=== PATIENT | female | born 1955 | race Caucasian/White ===

== ENCOUNTER → 2017-12-25 09:29 | Outpatient (CLI) | payer OTHER, SELFPAY ==
[2017-12-25 09:49] LABS: Add Manual Diff / Slide Review NO; Basophils Percent Auto 0.5 % (0-2); Eosinophils Percent Auto 3.9 % (2-4); Hemoglobin 17.5 g/dL (12.0-16.0); Mean Corpuscular HGB Conc 33.6 % (30-36); Mean Corpuscular Hemoglobin 29.8 PG (26-34); Mean Corpuscular Volume 88.8 fL (80-100); Neutrophils Absolute Auto 5000 /uL (3000-5900); Neutrophils Percent Auto 66.6 % (50-75); Platelet Count 272 X10^3/uL (150-400); Red Blood Cell Count 5.86 X10^6/uL (4.0-5.2); Red Cell Distribution Width 13.9 % (11.6-14.8); White Blood Cell Count 7.5 X10^3/uL (4.5-11.0)
[2017-12-25 10:03] LABS: Alanine Aminotransferase 58 IU/L (9-52); Albumin 4.3 g/dL (3.5-5.0); Albumin Globulin Ratio 1.2 (1.0-2.8); Alkaline Phosphatase 120 U/L (38-126); Aspartate Aminotransferase 41 IU/L (14-36); BUN Creatinine Ratio 23.8 (6-22); Bilirubin Total 0.8 mg/dL (0.2-1.3); Blood Urea Nitrogen 19 mg/dL (7-17); Calcium 9.5 mg/dL (8.4-10.2); Carbon Dioxide 26 mmol/L (22-32); Chloride 108 mmol/L (98-107); Estimated Glomerular Filt Rate > 60.0 mL/min (>60); Globulin 3.6 g/dL (1.7-4.1); Glucose 108 mg/dL (80-110); HEMOLYSIS < 15 (0-50); Potassium 4.4 mmol/L (3.4-5.1); Sodium 143 mmol/L (137-145); Total Protein 7.9 g/dL (6.3-8.2)
[2017-12-25 10:38] LABS: Ferritin 15.9 ng/mL (11.1-264); HEMOLYSIS < 15 (0-50); Iron 93 ug/dL (37-170)
[2017-12-25 10:50] LABS: Percent Iron Saturation 25 % (15-50); Total Iron Binding Capacity 377 ug/dL (265-497); Transferrin 300 mg/dL (206-381)
== END ==
PROVIDERS: Family Provider Physician Assistant; PCP Physician Assistant; Visit Provider Internal Medicine Hematology & Oncology
DX: D64.9 Anemia, unspecified (principal)
CPT/HCPCS: 36415; 80053; 82728; 83540; 83550; 85025

== ENCOUNTER 2018-01-06 23:56 | Emergency (ER) | payer OTHER, SELFPAY ==
[2018-01-07 00:09] VITALS: BP 136/101; PULSE 97; RESP 28; TEMP 36.4; O2SAT 97; BMI 48.4
--- NOTE | 2018-01-07 00:24 | DI.RAD.S_ITS ---
PROCEDURE: XR FOOT RT MIN 3V INDICATIONS: fall, lateral pain TECHNIQUE: 3 views of the foot were acquired. COMPARISON: [facility], , FOOT 3V RIGHT, 09/21/2010, 17:59. FINDINGS: Bones: No acute fractures or dislocations. No suspicious bony lesions. There is heterogeneity within the posterior calcaneal marrow space, previously present in 2010, and a small moderate fashion insertion spur at the posterior calcaneus. Soft tissues: No tibiotalar joint effusion. Achilles tendon appears normal. IMPRESSION: No trauma found. Plantar fascia insertion spur, normal variant heterogeneity within the posterior marrow space of the calcaneus diffusely present also in 2010. Source of lateral pain after trauma is not identified. Dictated by: Milind Hernandez M.D. on 01/07/2018 at 8:25 Approved by: Milind Hernandez M.D. on 01/07/2018 at 8:27
--- NOTE | 2018-01-07 00:24 | DI.RAD.S_ITS ---
PROCEDURE: XR ANKLE RT MIN 3V INDICATIONS: fall , pain TECHNIQUE: 3 views of the ankle were acquired. COMPARISON: [facility], CR, XR FOOT RT MIN 3V, 01/07/2018, 0:25. [facility], CR, ANKLE 3 VIEWS RIGHT, 12/06/2013, 20:02. FINDINGS: Bones: No fractures or dislocations. Ankle mortise is normally aligned. No suspicious bony lesions. Soft tissues: No tibiotalar joint effusion. Achilles tendon appears normal. IMPRESSION: No trauma found. 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 A source of persistent lateral pain after trauma is not found. Dictated by: Milind Hernandez M.D. on 01/07/2018 at 8:27 Approved by: Milind Hernandez M.D. on 01/07/2018 at 8:29
--- NOTE | 2018-01-07 01:00 | ED_ITS ---
HPI - Extremity Injury (Lower) General Chief Complaint: Extremity Injury, Lower Stated Complaint: TWISTED LEFT FOOT, PAIN CAN'T WALK Time Seen by Provider: 01/07/18 00:15 Source: patient Mode of arrival: wheelchair Limitations: no limitations History of Present Illness HPI Narrative: Patient is a 62-year-old female who presents with on right foot and ankle pain. She tripped and felt like her toes been all backwards. She has pain on her lateral ankle as well. She previously injured that foot and ankle number of years ago and required a walking boot. She denies numbness or tingling. She has no knee pain or hip pain no other injuries. Related Data Home Medications Medication Instructions Recorded Confirmed buspirone 5 mg PO BID 09/26/17 09/26/17 Allergies Allergy/AdvReac Type Severity Reaction Status Date / Time codeine [CODEINE] Allergy Unknown HIVES Verified 01/07/18 00:09 Review of Systems Review of Systems GENERAL: Denies chills,fever HEENT: Denies throat pain RESPIRATORY: Denies dyspnea, cough, wheezing CARDIOVASCULAR: Denies chest pain, palpitations GASTROINTESTINAL: Denies nausea, vomiting MUSCULOSKELETAL: See HPI SKIN: No rash, no laceration, no pruritus NEUROLOGIC: Denies weakness, dizziness, headache, numbness 8 point review of systems is negative except for those stated above and HPI PFSH Medical History Iron deficiency anemia following bariatric surgery (Acute) Surgical History History of gastric bypass Social History Smoking Status: Never smoker Exam Initial Vital Signs Initial Vital Signs: Vital Signs Temperature 97.6 F 01/07/18 00:09 Pulse Rate 97 H 01/07/18 00:09 Respiratory Rate 28 H 01/07/18 00:09 Blood Pressure 136/101 H 01/07/18 00:09 Pulse Oximetry 97 01/07/18 00:09 Const General: cooperative Nutritional Appearance: overweight Orientation: alert, awake and oriented x3 HENMT Head: normal to inspection and normocephalic Eyes Pupils: PERRL EOM: EOM intact bilaterally Chest Chest: normal inspection of the chest Resp Effort & Inspection: normal respiratory effort Cardio Rate: regular rate Rhythm: regular rhythm Heart Sounds: S1 normal and S2 normal GI Inspection: normal to inspection Palpation: soft and No tender Skin General: no rashes or lesions noted Neuro General: alert, awake and oriented x3 Cranial Nerves: CN's II-XI intact bilaterally Extrem Right lower extremity: ankle Details: tenderness Location: of the lateral malleolus and warmth; no edema and foot Details: tenderness Location: of the dorsal foot Location: distally and of the lateral foot Location: in the mid- section Course Orders Ordered: ED Orders 01/07/18 00:24 XR ankle RT min 3V Stat XR foot RT min 3V Stat Vital Signs - 8 hr 01/07/18 00:09 01/07/18 01:20 Temperature 97.6 F 98.1 F Pulse Rate 97 H 95 H Respiratory Rate 28 H 22 Blood Pressure 136/101 H 136/90 H Pulse Oximetry 97 98 MDM - Extremity Injury (Lower) Imaging Data Right ankle x-ray: Attestation: I personally reviewed and interpreted this imaging study as follows: My impression: No acute fracture, arthritis Right foot x-ray:: Attestation: I personally reviewed and interpreted this imaging study as follows: My impression: Arthritis, no acute fracture Discharge Plan Departure Patient Disposition: Home, Self-Care Clinical Impression: Ankle sprain, Right foot sprain Discharge Date/Time: 01/07/18 01:20 Interventions: ED Discharge Assessment Last Done: 01/07/18 01:20 Instructions: Ankle Sprain, DI for Foot Sprain Activity Restrictions/Additional Instructions: *You have been diagnosed with right ankle and foot sprain *What to do: No broken bones, use walking boot as needed increased weight- bearing as tolerated *Continue to take medications as directed Tylenol take as directed if needed for pain *Follow up with your primary care provider in 2-3 days *Return to ER if you should have increasing pain, numbness, tingling, weakness or any new, worsening or concerning symptoms Prescriptions: No Action buspirone 5 mg Tablet 5 mg PO BID RF: 0 Referrals: Colleen Puri PA-C [Primary Care Provider] -
[2018-01-07 01:20] VITALS: BP 136/90; PULSE 95; RESP 22; TEMP 36.7; O2SAT 98
== END 2018-01-07 01:20 | disposition home or self-care (01) ==
PROVIDERS: Emergency Provider Emergency Medicine; Family Provider Physician Assistant; PCP Physician Assistant
DX: S93.401A Sprain of unspecified ligament of right ankle, initial encounter (principal); W01.0XXA Fall on same level from slipping, tripping and stumbling without subsequent striking against object, initial encounter
CPT/HCPCS: 73610; 73630; 99282; 99283

== ENCOUNTER → 2018-02-25 16:18 | Outpatient (CLI) | payer OTHER, SELFPAY ==
--- NOTE | 2018-02-25 16:23 | DI.RAD.S_ITS ---
PROCEDURE: XR TOE RT MIN 2V INDICATIONS: RIGHT FOOT 4TH DIGIT,INJURY WEEKS AGO, PERSISTANT PAIN TECHNIQUE: 3 views of the fourth toe(s) acquired. COMPARISON: None. FINDINGS: Bones: No fractures or dislocations. No suspicious bony lesions. Soft tissues: No suspicious soft tissue densities. IMPRESSION: Osseous trauma is not found. No malalignment is present. Dictated by: Milind Hernandez M.D. on 02/25/2018 at 17:12 Approved by: Milind Hernandez M.D. on 02/25/2018 at 17:13
== END ==
PROVIDERS: Family Provider Physician Assistant; PCP Physician Assistant; Visit Provider Family Medicine
DX: M79.674 Pain in right toe(s) (principal)
CPT/HCPCS: 73660

== ENCOUNTER → 2018-03-03 14:52 | Outpatient (CLI) | payer OTHER, SELFPAY ==
[2018-03-03 15:06] LABS: Add Manual Diff / Slide Review NO; Basophils Percent Auto 0.6 % (0-2); Eosinophils Percent Auto 4.7 % (2-4); Hematocrit 48.9 % (36-46); Hemoglobin 16.2 g/dL (12.0-16.0); Lymphocytes Percent Auto 18.3 % (25-40); Mean Corpuscular HGB Conc 33.2 % (30-36); Mean Corpuscular Hemoglobin 29.3 PG (26-34); Mean Corpuscular Volume 88.3 fL (80-100); Monocytes Percent Auto 7.4 % (3-14); Neutrophils Absolute Auto 5400 /uL (3000-5900); Platelet Count 252 X10^3/uL (150-400); Red Blood Cell Count 5.53 X10^6/uL (4.0-5.2); Red Cell Distribution Width 14.1 % (11.6-14.8); White Blood Cell Count 7.9 X10^3/uL (4.5-11.0)
[2018-03-03 19:14] LABS: Alanine Aminotransferase 41 IU/L (9-52); Albumin 3.8 g/dL (3.5-5.0); Albumin Globulin Ratio 1.1 (1.0-2.8); Alkaline Phosphatase 106 U/L (38-126); Aspartate Aminotransferase 32 IU/L (14-36); BUN Creatinine Ratio 22.5 (6-22); Bilirubin Total 0.6 mg/dL (0.2-1.3); Blood Urea Nitrogen 18 mg/dL (7-17); Calcium 8.7 mg/dL (8.4-10.2); Carbon Dioxide 23 mmol/L (22-32); Chloride 114 mmol/L (98-107); Estimated Glomerular Filt Rate > 60.0 mL/min (>60); Globulin 3.4 g/dL (1.7-4.1); Glucose 89 mg/dL (80-110); HEMOLYSIS 16 (0-50); Lactate Dehydrogenase 486 U/L (313-618); Potassium 4.3 mmol/L (3.4-5.1); Sodium 146 mmol/L (137-145); Total Protein 7.2 g/dL (6.3-8.2)
[2018-03-03 19:18] LABS: HEMOLYSIS < 15 (0-50); Iron 80 ug/dL (37-170)
[2018-03-03 19:33] LABS: Percent Iron Saturation 24 % (15-50); Total Iron Binding Capacity 339 ug/dL (265-497); Transferrin 280 mg/dL (206-381)
[2018-03-03 20:10] LABS: Ferritin 15.6 ng/mL (11.1-264)
== END ==
PROVIDERS: Family Provider Physician Assistant; PCP Physician Assistant; Visit Provider Nurse Practitioner Gerontology
DX: D50.9 Iron deficiency anemia, unspecified (principal)
CPT/HCPCS: 36415; 80053; 82728; 83540; 83550; 83615; 85025

== ENCOUNTER → 2018-08-05 16:04 | Outpatient (CLI) | payer OTHER, SELFPAY | PROVIDERS: Family Provider Physician Assistant; PCP Physician Assistant; Visit Provider Internal Medicine Hematology & Oncology | DX: D50.9 Iron deficiency anemia, unspecified (principal); D75.1 Secondary polycythemia | CPT/HCPCS: 36415; 80053; 82728; 83540; 83550; 85025 ==

== ENCOUNTER → 2018-08-20 08:26 | Outpatient (CLI) | payer OTHER, SELFPAY ==
--- NOTE | 2018-08-20 08:28 | DI.US.S_ITS ---
PROCEDURE: US ABDOMEN LIMITED INDICATIONS: IRON DEFICIENCY; POLYCYTHEMIA TECHNIQUE: Real-time focused scanning was performed of the abdomen, with image documentation. COMPARISON: None. FINDINGS: Spleen measures 11.3 cm long with an estimated volume of 144 cubic centimeter. Splenic vein is patent. IMPRESSION: Spleen measures 11.3 cm long with an estimated volume of 144 cubic centimeter. Dictated by: Eduardo Kidd M.D. on 08/20/2018 at 10:54 Approved by: Eduardo Kidd M.D. on 08/20/2018 at 10:55
[2018-08-20 09:59] LABS: Hematocrit 47.9 % (36-46); Hemoglobin 16.2 g/dL (12.0-16.0)
== END ==
PROVIDERS: Family Provider Physician Assistant; PCP Physician Assistant; Visit Provider Nurse Practitioner Gerontology
DX: D50.9 Iron deficiency anemia, unspecified (principal); D75.1 Secondary polycythemia
CPT/HCPCS: 36415; 76705; 85014; 85018

== ENCOUNTER → 2019-07-29 15:00 | Oncology outpatient (ONC) | payer OTHER, SELFPAY ==
--- NOTE | 2017-09-26 10:37 | ONC.PN ---
Assessment and Plan - Time Spent with Patient Impression: 1. Iron deficiency anemia. 2. B12 deficiency. 3. History of gastric bypass in 2002. 4. History of panic attacks. She is feeling well and appears stable clinically at today's visit. Lab work reviewed with her. Ferritin at the low end of normal range however counts are stable and she is not anemic at the present time. No indication for IV iron today. She is taking an oral iron supplement though uncertain the dose or type. Recommend that she continue taking it and follow up here in 3-4 months with labs repeated prior to the visit. I encouraged her to call back sooner if interval concerns or new symptoms arise. Plan: 1. Continue oral iron supplement. Take with vitamin C on empty stomach for best absorption. 2. Return to clinic in 3-4 months. 3. CBC, CMP, iron, TIBC and ferritin prior to the visit. 4. Follow-up with Colleen Puri for other health issues or concerns. Dictated by Neil Case MD Medical Oncology and Hematology cc: Colleen Puri PA-C PN -Subjective Interval history: Identification: Ms. Duvall is a 62-year-old woman with history of iron deficiency anemia. Last seen here in clinic on 07/04/[address] Leigh. Interval history: Her past history is notable for gastric bypass surgery in 2002 at which time she reportedly weighed over 400 lb. She was able to lose 130 lb according to last note. Previously noted to be deficient in B12 and iron. She tried oral iron but did not tolerated. She received treatment with 5 doses of iron sucrose 200 mg in June 2016. Two more doses were subsequently given. Last seen here in clinic in June. She returns in follow-up today. Past medical history Gastric bypass Dr. Moose Doyle 2002 Iron deficiency B12 deficiency History of panic attacks - Additional ROS Additional ROS: Review of systems: General: No weight loss, fever or night sweats. Skin: No rash or bruising. HEENT: No headaches, epistaxis or dysphagia. Respiratory: No cough or dyspnea. Cardiac: No chest pain, PND or orthopnea. GI: No nausea, abdominal pain, bloating or early satiety. No hematochezia or hematemesis. :. Stable. Musculoskel etal: No new bone pain Neurologic: Negative. Results - Labs Laboratory results from September 22, 2017: WBC 7800, hemoglobin 16.7, hematocrit 49.7, MCV 88.4, platelet count 542052. Sodium 142, potassium 4.4, BUN 14, creatinine 0.8, glucose 94, calcium 8.8, iron 67, TIBC 351, saturation 19%, ferritin 15.3. Total bili 0.6, alk-phos 123, AST 32, ALT 49. Globulin 3.4. B12 344 Home Medications and Allergies Home Medications Medication Instructions Recorded Confirmed Type buspirone 5 mg PO BID 09/26/17 09/26/17 History Allergies Allergy/AdvReac Type Severity Reaction Status Date / Time codeine [CODEINE] Allergy Unknown HIVES Unverified 09/03/17 12:00 Exam Narrative: Physical exam: Skin: No evident rash, petechiae or ecchymoses. General: Alert, comfortable and well nourished. Not in apparent distress. HEENT: Sclerae anicteric, GENE, EOMI. Oropharynx clear. Mucosal membranes moist. No glossitis. Lymph: No palpable cervical or supraclavicular adenopathy. Lungs: Clear bilaterally without wheezes or rales. Cor: Regular rate and rhythm, no S3 or murmur. Abdomen: Obese, soft, nontender. Active bowel sounds. No palpable mass or evident hepatosplenomegaly. Extremities: No significant edema. Neurologic: Mood and affect appropriate. Speech is fluent and coherent. Gait steady and without apparent ataxia.
[2017-09-26 11:01] VITALS: BP 166/103; PULSE 83; RESP 15; TEMP 36.9; O2SAT 98
--- NOTE | 2018-01-06 08:13 | ONC.APRN.PN ---
Assessment and Plan (1) Iron deficiency anemia following bariatric surgery Current visit: No Status: Acute 01/06/18 08:14 62-year-old female who is seen in this clinic for a diagnosis of iron deficiency anemia, in patient with history of gastric bypass. In the past she has required iron sucrose infusions most recent infusions June of 2016. She continues on oral iron supplement TID. Recent lab work December 25, 2017 demonstrates very normal iron studies with total iron of 93 saturation 25%. Interestingly, patient does have elevated hemoglobin and hematocrit. Hemoglobin 17.5 hematocrit 52.0. In review of the last few years hemoglobin and hematocrit have been persistently elevated since January of 2017. Prior to that intermittently elevated. Dr Leigh at one point investigated further studies specifically the patient was Lc 2 negative. Patient does have risk factors for polycythemia vera she is morbidly obese. I suspect she does have some sleep apnea however patient denies. Additionally, patient has had hypertensive readings in the past. Blood pressure was normal at intake today. No signs or symptoms of thrombotic event. I have asked the patient to discontinue her iron supplement. I will have her return in 4 weeks to visit with 1 of our new oncologist. Prior to her next appointment we will check CBC CMP LDH along with iron profile, ferritin. I will also order abdominal ultrasound to get a better look at her spleen. She is quite difficult to examine noting her habitus. Patient does not have any history of therapeutic phlebotomy. 01/06/18 16:25 01/06/18 16:29 - Time Spent with Patient 30 mins PN -Subjective Interval history: Identification: Ms. Duvall is a 62-year-old woman with history of iron deficiency anemia. Was previously under the care of Dr Leigh, was evaluated by Dr Case 09/26/2017. Interval history: Her past history is notable for gastric bypass surgery in 2002 at which time she reportedly weighed over 400 lb. She was able to lose 130 lb according to last note. Previously noted to be deficient in B12 and iron. She tried oral iron but did not tolerated. She received treatment with 5 doses of iron sucrose 200 mg in June 2016. Two more doses were subsequently given. Last seen here in clinic in September, she has not required iron infusions since June of 2016. On exam today patient continues to complain of chronic dizziness. Primary care is managing, patient reports she sees primary care soon and they are ?working on it?. Otherwise feeling pretty well. Activity tolerance is quite good. No change in appetite, no early satiety. No change with bowel or bladder habits. No abdominal bloating. No vision changes. No headaches. Past medical history Gastric bypass Dr. Moose Doyle 2002 Iron deficiency B12 deficiency History of panic attacks Home Medications and Allergies Home Medications Medication Instructions Recorded Confirmed Type buspirone 5 mg PO BID 09/26/17 09/26/17 History Allergies Allergy/AdvReac Type Severity Reaction Status Date / Time codeine [CODEINE] Allergy Unknown HIVES Unverified 09/03/17 12:00 Exam Vital signs: Last Vital Signs Temp 98.4 F 09/26/17 11:01 Pulse 83 09/26/17 11:01 Resp 15 09/26/17 11:01 BP 166/103 H 09/26/17 11:01 Pulse Ox 98 09/26/17 11:01 - Constitutional positive morbidly obese - Routine HEENT Exam Head: Absent: scalp tenderness, tenderness of temporal artery Eye: Present: conjunctivae pink. Absent: conjunctival icterus, scleral injection ENT: Present: mucous membranes moist, oropharynx clear Comments: poor oral care - Routine Neck Exam Present: supple. Absent: lymphadenopathy - Routine Respiratory Exam Present: Clear to auscultation bilaterally. Absent: rales, rhonchi, wheezes - Routine Cardiovascular Exam Present: RRR, S1, S2. Absent: murmur, gallop, rubs, JVD - Routine Abdominal Exam Present: soft, normoactive bowel sounds. Absent: tenderness, distended, organomegaly, mass Comments: morbidly obese abdomen, very difficult to examine liver, spleen - Routine Extremities Exam Absent: edema, calf tenderness - Routine Skin Exam Present: intact, normal turgor. Absent: petechiae, rash - Routine Neurological Exam Present: alert, oriented X3 - Routine Psychiatric Exam Present: normal affect
[2018-01-06 15:49] VITALS: BP 126/84; PULSE 74; RESP 18; TEMP 37; O2SAT 97
[2018-03-09 13:17] VITALS: BP 152/97; PULSE 89; RESP 19; TEMP 37.3; O2SAT 99
--- NOTE | 2018-03-09 13:19 | ONC.PN ---
PN -Subjective Interval history: Chief complaint 63-year-old female with history of iron deficiency anemia. History of present illness Ms. Duvall is a 63-year-old woman with history of iron deficiency anemia. She was previously under the care of Dr Leigh, and Dr Case. Due to severe obesity (> 400 lb), she underwent gastric bypass surgery in 2002. She was able to lose 130 lb according to the note. She was found to be iron deficient with ferritin as low as 3.5 on 06/27/2016. She tried oral iron but did not tolerated. She received treatment with 5 doses of iron sucrose 200 mg in June 2016. Two more doses were subsequently given. Her ferritin level went up to 34.2 on 08/02/2016. Her H/H have been normalized since 08/02/2016, and remarkably have been mildly polycythemic with most recent H/H 16.2/48.9 on 03/03/2018. She has not required any iron infusions since June of 2016. She has also stopped oral iron completely. Today, she said she starts feeling great. She does not have any new complaints. She is not taking any medications except buspirone for depression. She denies any sleep apnea either. Past medical history Gastric bypass Dr. Moose Doyle 2002 Iron deficiency B12 deficiency History of panic attacks - Additional ROS All systems PM: reviewed and no additional remarkable complaints except as stated Home Medications and Allergies Home Medications Medication Instructions Recorded Confirmed Type buspirone 5 mg PO BID 09/26/17 03/09/18 History Allergies Allergy/AdvReac Type Severity Reaction Status Date / Time codeine [CODEINE] Allergy Unknown HIVES Verified 01/07/18 00:09 Exam Vital signs: Temp 99.1 F 03/09/18 13:17 Pulse 89 03/09/18 13:17 Resp 19 03/09/18 13:17 BP 152/97 H 03/09/18 13:17 Pulse Ox 99 03/09/18 13:17 ECOG 1 Narrative: Constitutional: Well developed, well nourished, not in any acute respiratory distress, obese, pleasant and cooperative. HEENT: Normocephalic atraumatic. Extraocular muscle movement intact. Pupils are round, equal and reactive to light and accommodations. Anicteric sclera. No hearing difficulty; Oral mucus membrane moist and without ulcers. Neck: Supple, symmetrical, and tracheal midline; No palpable thyromegaly and no palpable lymph nodes. Respiratory: No use of accessory muscles. Clear to auscultation, and no wheezes or rales or rubs. Cardiovascular: Regular rate and rhythm, S1 and S2 normal, no murmurs gallops or rubs. No JVD. No pitting edema of lower extremities. Abdomen: Soft, nontender, non-distended, bowel sounds normal, no palpable organomegaly, no hernia, no palpable masses. Lower extremities: No palpable pedal edema. Lymphatic: no palpable lymph nodes in the neck, axillae, or groins. Musculoskeletal: normal gait and station, no clubbing, no cyanosis, no pitting edema. Skin: no rashes, no ulcers, no petechiae Neurological: Awake and alert and oriented x3. CN II-XII grossly intact. No focal motor or sensory deficit. Psychiatric: Good judgment, good insight, normal affect, normal thought process, cooperative, no depression, no anxiety. Results - Labs Labs from March 03, 2018: WBC 7.9, hemoglobin 16.2, hematocrit 48.9, MCV 88.3, platelets of 252. Assessment and Plan (1) Iron deficiency anemia following bariatric surgery She was iron deficient with significantly low level of ferritin in June of 2016. After intravenous iron supplementation, patient has become not anemic anymore. On the contrary she has become slightly polycythemic. Patient said that she is not taking any oral iron at this moment. It is somewhat unusual to see over showed of hemoglobin/hematocrit after iron infusion. I talked with the patient that since clinically she does not have any signs or symptoms, I will continue current active surveillance. If the H and H continue to increase progressively, I will proceed with workup for polycythemia. (2) Obesity Status post gastric bypass surgery. Weight has been stable after a decrease of about 130 lb. We will continue monitor. - Time Spent with Patient Plan in summary: 1. RTC MD in one month 2. Repeat CBC, CMP, LDH, Fe panel, and ferritin with next visit
[2018-03-30 15:25] LABS: Alanine Aminotransferase 56 IU/L (9-52); Albumin 4.1 g/dL (3.5-5.0); Albumin Globulin Ratio 1.3 (1.0-2.8); Alkaline Phosphatase 120 U/L (38-126); Aspartate Aminotransferase 37 IU/L (14-36); Bilirubin Total 0.5 mg/dL (0.2-1.3); Blood Urea Nitrogen 14 mg/dL (7-17); Calcium 8.8 mg/dL (8.4-10.2); Carbon Dioxide 25 mmol/L (22-32); Chloride 110 mmol/L (98-107); Estimated Glomerular Filt Rate > 60.0 mL/min (>60); Globulin 3.1 g/dL (1.7-4.1); Glucose 96 mg/dL (80-110); HEMOLYSIS < 15 (0-50); Lactate Dehydrogenase 469 U/L (313-618); Potassium 4.2 mmol/L (3.4-5.1); Sodium 147 mmol/L (137-145); Total Protein 7.2 g/dL (6.3-8.2)
[2018-03-30 15:31] LABS: Add Manual Diff / Slide Review NO; Basophils Percent Auto 0.4 % (0-2); Eosinophils Percent Auto 4.5 % (2-4); Hematocrit 49.4 % (36-46); Hemoglobin 16.5 g/dL (12.0-16.0); Lymphocytes Percent Auto 23.2 % (25-40); Mean Corpuscular HGB Conc 33.5 % (30-36); Mean Corpuscular Hemoglobin 29.6 PG (26-34); Mean Corpuscular Volume 88.5 fL (80-100); Monocytes Percent Auto 7.6 % (3-14); Neutrophils Absolute Auto 4200 /uL (3000-5900); Neutrophils Percent Auto 64.3 % (50-75); Platelet Count 259 X10^3/uL (150-400); Red Blood Cell Count 5.58 X10^6/uL (4.0-5.2); Red Cell Distribution Width 13.9 % (11.6-14.8); White Blood Cell Count 6.6 X10^3/uL (4.5-11.0)
[2018-03-30 15:54] LABS: HEMOLYSIS 47 (0-50); Iron 81 ug/dL (37-170)
[2018-03-30 15:57] LABS: Ferritin 13.3 ng/mL (11.1-264)
[2018-03-30 16:05] LABS: Percent Iron Saturation 25 % (15-50); Total Iron Binding Capacity 329 ug/dL (265-497); Transferrin 268 mg/dL (206-381)
[2018-04-06 14:54] VITALS: BP 115/89; PULSE 102; RESP 18; TEMP 36.9; O2SAT 98
--- NOTE | 2018-04-06 15:48 | ONC.PN ---
PN -Subjective Interval history: 63 year old with history of iron deficiency anemia now presented polycythemia. Clinically there is no new signs or symptoms. Patient reported good energy good appetite. He reported no chest pain no shortness of breath. Patient does recall that for the past several months, patient has noted some abdominal node in the upper epigastric region and it comes and goes. History of present illness Ms. Duvall is a 63-year-old woman with history of iron deficiency anemia. She was previously under the care of Dr Leigh, and Dr Case. Due to severe obesity (> 400 lb), she underwent gastric bypass surgery in 2002. She was able to lose 130 lb according to the note. She was found to be iron deficient with ferritin as low as 3.5 on 06/27/2016. She tried oral iron but did not tolerated. She received treatment with 5 doses of iron sucrose 200 mg in June 2016. Two more doses were subsequently given. Her ferritin level went up to 34.2 on 08/02/2016. Her H/H have been normalized since 08/02/2016, and remarkably have been mildly polycythemic with most recent H/H 16.2/48.9 on 03/03/2018. She has not required any iron infusions since June of 2016. She has also stopped oral iron completely. Past medical history Gastric bypass Dr. Moose Doyle 2002 Iron deficiency B12 deficiency History of panic attacks - Patient Self-Reported Symptoms SR Musculoskeletal issues: Back or neck pain Home Medications and Allergies Home Medications Medication Instructions Recorded Confirmed Type buspirone 5 mg PO BID 09/26/17 03/09/18 History Allergies Allergy/AdvReac Type Severity Reaction Status Date / Time codeine [CODEINE] Allergy Unknown HIVES Verified 01/07/18 00:09 Exam Vital signs: Temp 98.5 F 04/06/18 14:54 Pulse 102 H 04/06/18 14:54 Resp 18 04/06/18 14:54 BP 115/89 04/06/18 14:54 Pulse Ox 98 04/06/18 14:54 ECOG 1 Narrative: Constitutional: Well developed, well nourished, not in any acute respiratory distress, obese, pleasant and cooperative. HEENT: Normocephalic atraumatic. Extraocular muscle movement intact. Pupils are round, equal and reactive to light and accommodations. Anicteric sclera. No hearing difficulty; Oral mucus membrane moist and without ulcers. Neck: Supple, symmetrical, and tracheal midline; No palpable thyromegaly and no palpable lymph nodes. Respiratory: No use of accessory muscles. Clear to auscultation, and no wheezes or rales or rubs. Cardiovascular: Regular rate and rhythm, S1 and S2 normal, no murmurs gallops or rubs. No JVD. No pitting edema of lower extremities. Abdomen: Soft, nontender, non-distended, bowel sounds normal, no palpable organomegaly, no hernia, no palpable masses. Lower extremities: No palpable pedal edema. Lymphatic: no palpable lymph nodes in the neck, axillae, or groins. Musculoskeletal: normal gait and station, no clubbing, no cyanosis, no pitting edema. Skin: no rashes, no ulcers, no petechiae Neurological: Awake and alert and oriented x3. CN II-XII grossly intact. No focal motor or sensory deficit. Psychiatric: Good judgment, good insight, normal affect, normal thought process, cooperative, no depression, no anxiety. Results - Labs WBC 6.6 X10^3/uL (4.5-11.0) 03/30/18 14:34 RBC 5.58 X10^6/uL (4.0-5.2) H 03/30/18 14:34 Hgb 16.5 g/dL (12.0-16.0) H 03/30/18 14:34 Hct 49.4 % (36-46) H 03/30/18 14:34 MCV 88.5 fL (80-100) 03/30/18 14:34 MCH 29.6 PG (26-34) 03/30/18 14:34 MCHC 33.5 % (30-36) 03/30/18 14:34 RDW 13.9 % (11.6-14.8) 03/30/18 14:34 Plt Count 259 X10^3/uL (150-400) 03/30/18 14:34 Neut % (Auto) 64.3 % (50-75) 03/30/18 14:34 Lymph % (Auto) 23.2 % (25-40) L 03/30/18 14:34 [place] % (Auto) 7.6 % (3-14) 03/30/18 14:34 Eos % (Auto) 4.5 % (2-4) H 03/30/18 14:34 Baso % (Auto) 0.4 % (0-2) 03/30/18 14:34 Neut # (Auto) 4200 /uL (1543-5583) 03/30/18 14:34 Sodium 147 mmol/L (137-145) H 03/30/18 14:34 Potassium 4.2 mmol/L (3.4-5.1) 03/30/18 14:34 Chloride 110 mmol/L (98-107) H 03/30/18 14:34 Carbon Dioxide 25 mmol/L (22-32) 03/30/18 14:34 BUN 14 mg/dL (7-17) 03/30/18 14:34 Creatinine 0.70 mg/dL (0.52-1.04) 03/30/18 14:34 Estimated GFR > 60.0 mL/min (>60) 03/30/18 14:34 BUN/Creatinine Ratio 20.0 (6-22) 03/30/18 14:34 Glucose 96 mg/dL (80-110) 03/30/18 14:34 Calcium 8.8 mg/dL (8.4-10.2) 03/30/18 14:34 Iron 81 ug/dL (37-170) 03/30/18 14:34 TIBC 329 ug/dL (265-497) 03/30/18 14:34 % Saturation 25 % (15-50) 03/30/18 14:34 Transferrin 268 mg/dL (206-381) 03/30/18 14:34 Ferritin 13.3 ng/mL (11.1-264) 03/30/18 14:34 Total Bilirubin 0.5 mg/dL (0.2-1.3) 03/30/18 14:34 AST 37 IU/L (14-36) H 03/30/18 14:34 ALT 56 IU/L (9-52) H 03/30/18 14:34 Alkaline Phosphatase 120 U/L (38-126) 03/30/18 14:34 Lactate Dehydrogenase 469 U/L (313-618) 03/30/18 14:34 Total Protein 7.2 g/dL (6.3-8.2) 03/30/18 14:34 Albumin 4.1 g/dL (3.5-5.0) 03/30/18 14:34 Globulin 3.1 g/dL (1.7-4.1) 03/30/18 14:34 Albumin/Globulin Ratio 1.3 (1.0-2.8) 03/30/18 14:34 Assessment and Plan (1) Polycythemia Problem details: She had serious iron deficiency anemia as a result of gastric bypass surgery in 2002. She had oral iron and recent intravenous iron supplementation. But she developed polycythemia with H/H 16.2/48.9 on 03/03/2018 depite a ferritin level of only 15.6. Assessment: I reviewed her laboratory results from today. Once again her ferritin level was only 13.3, but her H and H were 16.5 and 49.4%. It is difficult to explain why patient developed polycythemia. One possibility is that patient has a underlying polycythemia vera which somehow on masked by use of iron infusion. To further investigate, I will obtain peripheral blood sample for testing. Plan: 1. PB sample for [id number] mutation analysis reflex to Jak2 exon 12-15, MPL and CalR 2. RTC MD visit 2-3 weeks, CBC, CMP (2) Iron deficiency anemia following bariatric surgery Problem details: Due to severe obesity (> 400 lb), she underwent gastric bypass surgery in 2002. She was found to be iron deficient with ferritin as low as 3.5 on 06/27/2016. Assessment: She definitely has iron deficiency anemia as a result of mild obstruction due to previous gastric bypass surgery. Now after iron supplementation it has already resolved. On the contrary she developed polycythemia. Please see above. Plan: Monitor CBC/D and iron panel regularly
[2018-04-23 14:26] LABS: Add Manual Diff / Slide Review NO; Basophils Percent Auto 0.6 % (0-2); Eosinophils Percent Auto 4.7 % (2-4); Hematocrit 47.3 % (36-46); Hemoglobin 16.1 g/dL (12.0-16.0); Lymphocytes Percent Auto 20.3 % (25-40); Mean Corpuscular Hemoglobin 29.5 PG (26-34); Mean Corpuscular Volume 86.7 fL (80-100); Neutrophils Absolute Auto 4900 /uL (3000-5900); Neutrophils Percent Auto 66.4 % (50-75); Platelet Count 267 X10^3/uL (150-400); Red Blood Cell Count 5.45 X10^6/uL (4.0-5.2); Red Cell Distribution Width 13.9 % (11.6-14.8); White Blood Cell Count 7.3 X10^3/uL (4.5-11.0)
[2018-04-23 14:39] LABS: Alanine Aminotransferase 63 IU/L (9-52); Albumin Globulin Ratio 1.3 (1.0-2.8); Alkaline Phosphatase 113 U/L (38-126); Aspartate Aminotransferase 49 IU/L (14-36); Bilirubin Total 0.5 mg/dL (0.2-1.3); Blood Urea Nitrogen 16 mg/dL (7-17); Calcium 8.7 mg/dL (8.4-10.2); Carbon Dioxide 23 mmol/L (22-32); Chloride 111 mmol/L (98-107); Estimated Glomerular Filt Rate > 60.0 mL/min (>60); Globulin 3.2 g/dL (1.7-4.1); Glucose 93 mg/dL (80-110); HEMOLYSIS 19 (0-50); Potassium 4.5 mmol/L (3.4-5.1); Sodium 145 mmol/L (137-145); Total Protein 7.2 g/dL (6.3-8.2)
[2018-04-23 14:59] VITALS: BP 134/84; PULSE 74; RESP 19; TEMP 36.7; O2SAT 98
--- NOTE | 2018-04-23 15:07 | ONC.PN ---
PN -Subjective Interval history: 63 year old with history of iron deficiency anemia now presented polycythemia. Since last visit patient has been doing well without any new complaints. Patient came in here today accompanied by her son to the clinic. Patient said that she is here to follow-up on the results. Patient is JAK2 V617F mutation analysis was negative. History of present illness Ms. Duvall is a 63-year-old woman with history of iron deficiency anemia. She was previously under the care of Dr Leigh, and Dr Case. Due to severe obesity (> 400 lb), she underwent gastric bypass surgery in 2002. She was able to lose 130 lb according to the note. She was found to be iron deficient with ferritin as low as 3.5 on 06/27/2016. She tried oral iron but did not tolerated. She received treatment with 5 doses of iron sucrose 200 mg in June 2016. Two more doses were subsequently given. Her ferritin level went up to 34.2 on 08/02/2016. Her H/H have been normalized since 08/02/2016, and remarkably have been mildly polycythemic with most recent H/H 16.2/48.9 on 03/03/2018. She has not required any iron infusions since June of 2016. She has also stopped oral iron completely. Past medical history Gastric bypass Dr. Moose Doyle 2002 Iron deficiency B12 deficiency History of panic attacks - Patient Self-Reported Symptoms SR Musculoskeletal issues: Back or neck pain - Additional ROS All systems PM: reviewed and no additional remarkable complaints except as stated Home Medications and Allergies Home Medications Medication Instructions Recorded Confirmed Type buspirone 5 mg PO BID 09/26/17 03/09/18 History Allergies Allergy/AdvReac Type Severity Reaction Status Date / Time codeine [CODEINE] Allergy Unknown HIVES Verified 01/07/18 00:09 Exam Vital signs: Last Vital Signs Temp 98.0 F 04/23/18 14:59 Pulse 74 04/23/18 14:59 Resp 19 04/23/18 14:59 BP 134/84 04/23/18 14:59 Pulse Ox 98 04/23/18 14:59 ECOG 1 Narrative: Constitutional: Well developed, well nourished, not in any acute respiratory distress, obese, pleasant and cooperative. HEENT: Normocephalic atraumatic. Extraocular muscle movement intact. Pupils are round, equal and reactive to light and accommodations. Anicteric sclera. No hearing difficulty; Oral mucus membrane moist and without ulcers. Neck: Supple, symmetrical, and tracheal midline; No palpable thyromegaly and no palpable lymph nodes. Respiratory: No use of accessory muscles. Clear to auscultation, and no wheezes or rales or rubs. Cardiovascular: Regular rate and rhythm, S1 and S2 normal, no murmurs gallops or rubs. No JVD. No pitting edema of lower extremities. Abdomen: Soft, nontender, non-distended, bowel sounds normal, no palpable organomegaly, no hernia, no palpable masses. Lower extremities: No palpable pedal edema. Lymphatic: no palpable lymph nodes in the neck, axillae, or groins. Musculoskeletal: normal gait and station, no clubbing, no cyanosis, no pitting edema. Skin: no rashes, no ulcers, no petechiae Neurological: Awake and alert and oriented x3. CN II-XII grossly intact. No focal motor or sensory deficit. Psychiatric: Good judgment, good insight, normal affect, normal thought process, cooperative, no depression, no anxiety. Results - Labs Laboratory Last Values WBC 7.3 X10^3/uL (4.5-11.0) 04/23/18 14:11 RBC 5.45 X10^6/uL (4.0-5.2) H 04/23/18 14:11 Hgb 16.1 g/dL (12.0-16.0) H 04/23/18 14:11 Hct 47.3 % (36-46) H 04/23/18 14:11 MCV 86.7 fL (80-100) 04/23/18 14:11 MCH 29.5 PG (26-34) 04/23/18 14:11 MCHC 34.0 % (30-36) 04/23/18 14:11 RDW 13.9 % (11.6-14.8) 04/23/18 14:11 Plt Count 267 X10^3/uL (150-400) 04/23/18 14:11 Neut % (Auto) 66.4 % (50-75) 04/23/18 14:11 Lymph % (Auto) 20.3 % (25-40) L 04/23/18 14:11 [place] % (Auto) 8.0 % (3-14) 04/23/18 14:11 Eos % (Auto) 4.7 % (2-4) H 04/23/18 14:11 Baso % (Auto) 0.6 % (0-2) 04/23/18 14:11 Neut # (Auto) 4900 /uL (1803-7892) 04/23/18 14:11 Sodium 145 mmol/L (137-145) 04/23/18 14:11 Potassium 4.5 mmol/L (3.4-5.1) 04/23/18 14:11 Chloride 111 mmol/L (98-107) H 04/23/18 14:11 Carbon Dioxide 23 mmol/L (22-32) 04/23/18 14:11 BUN 16 mg/dL (7-17) 04/23/18 14:11 Creatinine 0.80 mg/dL (0.52-1.04) 04/23/18 14:11 Estimated GFR > 60.0 mL/min (>60) 04/23/18 14:11 BUN/Creatinine Ratio 20.0 (6-22) 04/23/18 14:11 Glucose 93 mg/dL (80-110) 04/23/18 14:11 Calcium 8.7 mg/dL (8.4-10.2) 04/23/18 14:11 Iron 81 ug/dL (37-170) 03/30/18 14:34 TIBC 329 ug/dL (265-497) 03/30/18 14:34 % Saturation 25 % (15-50) 03/30/18 14:34 Transferrin 268 mg/dL (206-381) 03/30/18 14:34 Ferritin 13.3 ng/mL (11.1-264) 03/30/18 14:34 Total Bilirubin 0.5 mg/dL (0.2-1.3) 04/23/18 14:11 AST 49 IU/L (14-36) H 04/23/18 14:11 ALT 63 IU/L (9-52) H 04/23/18 14:11 Alkaline Phosphatase 113 U/L (38-126) 04/23/18 14:11 Lactate Dehydrogenase 469 U/L (313-618) 03/30/18 14:34 Total Protein 7.2 g/dL (6.3-8.2) 04/23/18 14:11 Albumin 4.0 g/dL (3.5-5.0) 04/23/18 14:11 Globulin 3.2 g/dL (1.7-4.1) 04/23/18 14:11 Albumin/Globulin Ratio 1.3 (1.0-2.8) 04/23/18 14:11 Assessment and Plan (1) Polycythemia Problem details: She had serious iron deficiency anemia as a result of gastric bypass surgery in 2002. She had oral iron and recent intravenous iron supplementation. But she developed polycythemia with H/H 16.2/48.9 on 03/03/2018 depite a ferritin level of only 15.6. Assessment: I reviewed the laboratory tests with the patient. patient's JAK2 V617F mutation analysis was negative. No reflex testing results are available for review today. Clinically she does not have any new signs or symptoms. Patient's hemoglobin and hematocrit level actually have been decreasing slightly compared to her previous visit. No shortness of breath no chest pain. I talked with the patient that I will continue to trend the hemoglobin and hematocrit level and will decide about further tests. For now, I do not think that phlebotomy is indicated. Plan: 1. RTC in one month, CBC, CMP, Fe panel, Ferritin (2) Iron deficiency anemia following bariatric surgery Problem details: Due to severe obesity (> 400 lb), she underwent gastric bypass surgery in 2002. She was found to be iron deficient with ferritin as low as 3.5 on 06/27/2016. Assessment: She has iron deficiency anemia as a result of malabsorption due to previous gastric bypass surgery. Now after iron supplementation, it has already resolved. On the contrary she developed polycythemia. Please see above. Plan: Monitor CBC/D and iron panel regularly
[2018-05-14 13:54] LABS: Add Manual Diff / Slide Review NO; Basophils Percent Auto 0.3 % (0-2); Eosinophils Percent Auto 3.3 % (2-4); Hemoglobin 15.9 g/dL (12.0-16.0); Lymphocytes Percent Auto 17.7 % (25-40); Mean Corpuscular HGB Conc 33.2 % (30-36); Mean Corpuscular Hemoglobin 29.3 PG (26-34); Mean Corpuscular Volume 88.2 fL (80-100); Monocytes Percent Auto 7.6 % (3-14); Neutrophils Absolute Auto 5300 /uL (1500-7000); Neutrophils Percent Auto 71.1 % (50-75); Platelet Count 243 X10^3/uL (150-400); Red Blood Cell Count 5.45 X10^6/uL (4.0-5.2); Red Cell Distribution Width 13.8 % (11.6-14.8); White Blood Cell Count 7.4 X10^3/uL (4.5-11.0)
[2018-05-14 13:58] LABS: HEMOLYSIS 17 (0-50); Iron 92 ug/dL (37-170)
[2018-05-14 14:00] LABS: Alanine Aminotransferase 37 IU/L (9-52); Albumin Globulin Ratio 1.2 (1.0-2.8); Alkaline Phosphatase 97 U/L (38-126); Aspartate Aminotransferase 30 IU/L (14-36); BUN Creatinine Ratio 17.5 (6-22); Bilirubin Total 0.6 mg/dL (0.2-1.3); Blood Urea Nitrogen 14 mg/dL (7-17); Calcium 8.8 mg/dL (8.4-10.2); Carbon Dioxide 20 mmol/L (22-32); Chloride 112 mmol/L (98-107); Estimated Glomerular Filt Rate > 60.0 mL/min (>60); Globulin 3.3 g/dL (1.7-4.1); Glucose 119 mg/dL (80-110); HEMOLYSIS 20 (0-50); Potassium 4.1 mmol/L (3.4-5.1); Sodium 145 mmol/L (137-145); Total Protein 7.3 g/dL (6.3-8.2)
[2018-05-14 14:08] LABS: Total Iron Binding Capacity 327 ug/dL (265-497)
[2018-05-14 14:09] LABS: Percent Iron Saturation 28 % (15-50); Transferrin 269 mg/dL (206-381)
[2018-05-14 14:35] LABS: Ferritin 15.3 ng/mL (11.1-264)
--- NOTE | 2018-05-21 10:32 | P.PNONC_ITS ---
PN -Subjective Interval history: Ms. Duvall is a 63-year-old woman with history of iron deficiency anemia. She presents here today for scheduled follow-up visit. She was previously under the care of Dr Leigh, and Dr Case. Due to severe obesity (> 400 lb), she underwent gastric bypass surgery in 2002. She was able to lose 130 lb according to the note. She was found to be iron deficient with ferritin as low as 3.5 on 06/27/2016. She tried oral iron but did not tolerated. She received treatment with 5 doses of iron sucrose 200 mg in June 2016. Two more doses were subsequently given. Her ferritin level went up to 34.2 on 08/02/2016. Her H/H have been normalized since 08/02/2016, and remarkably have been mildly polycythemic with most recent H/H 16.2/48.9 on 03/03/2018. She has not required any iron infusions since June of 2016. She has also stopped oral iron completely. Patient's JAK2 V617F mutation analysis was negative. Since her previous visit, patient said that she has been doing well, and she denies any new signs or symptoms. Especially she denies any shortness of breath or chest pain. She denies abdominal pain or diarrhea or constipation. She denies any tingling or numbing of hands and feet. She denies any aqua sensitivity. Past medical history Gastric bypass Dr. Moose Doyle 2002 Iron deficiency B12 deficiency History of panic attacks - Patient Self-Reported Symptoms SR Musculoskeletal issues: Back or neck pain - Additional ROS All systems PM: reviewed and no additional remarkable complaints except as stated Home Medications and Allergies Home Medications Medication Instructions Recorded Confirmed Type buspirone 5 mg PO BID 09/26/17 03/09/18 History Allergies Allergy/AdvReac Type Severity Reaction Status Date / Time codeine [CODEINE] Allergy Unknown HIVES Verified 01/07/18 00:09 Exam Vital signs: Last Vital Signs Temp 98.0 F 04/23/18 14:59 Pulse 74 04/23/18 14:59 Resp 19 04/23/18 14:59 BP 134/84 04/23/18 14:59 Pulse Ox 98 04/23/18 14:59 ECOG 1 Narrative: Constitutional: Well developed, well nourished, not in any acute respiratory distress, obese, pleasant and cooperative. Here by herself HEENT: Normocephalic atraumatic. Extraocular muscle movement intact. Pupils are round, equal and reactive to light and accommodations. Anicteric sclera. No hearing difficulty; Oral mucus membrane moist and without ulcers. Neck: Supple, symmetrical, and tracheal midline; No palpable thyromegaly and no palpable lymph nodes. Respiratory: No use of accessory muscles. Clear to auscultation, and no wheezes or rales or rubs. Cardiovascular: Regular rate and rhythm, S1 and S2 normal, no murmurs gallops or rubs. No JVD. No pitting edema of lower extremities. Abdomen: Soft, nontender, non-distended, bowel sounds normal, no palpable organomegaly, no hernia, no palpable masses. Lower extremities: No palpable pedal edema. Lymphatic: no palpable lymph nodes in the neck, axillae, or groins. Musculoskeletal: normal gait and station, no clubbing, no cyanosis, no pitting edema. Skin: no rashes, no ulcers, no petechiae Neurological: Awake and alert and oriented x3. CN II-XII grossly intact. No focal motor or sensory deficit. Psychiatric: Good judgment, good insight, normal affect, normal thought process , cooperative, no depression, no anxiety. Results - Labs Laboratory Last Values WBC 7.4 X10^3/uL (4.5-11.0) 05/14/18 13:30 RBC 5.45 X10^6/uL (4.0-5.2) H 05/14/18 13:30 Hgb 15.9 g/dL (12.0-16.0) 05/14/18 13:30 Hct 48.0 % (36-46) H 05/14/18 13:30 MCV 88.2 fL (80-100) 05/14/18 13:30 MCH 29.3 PG (26-34) 05/14/18 13:30 MCHC 33.2 % (30-36) 05/14/18 13:30 RDW 13.8 % (11.6-14.8) 05/14/18 13:30 Plt Count 243 X10^3/uL (150-400) 05/14/18 13:30 Neut % (Auto) 71.1 % (50-75) 05/14/18 13:30 Lymph % (Auto) 17.7 % (25-40) L 05/14/18 13:30 [place] % (Auto) 7.6 % (3-14) 05/14/18 13:30 Eos % (Auto) 3.3 % (2-4) 05/14/18 13:30 Baso % (Auto) 0.3 % (0-2) 05/14/18 13:30 Neut # (Auto) 5300 /uL (4536-6117) 05/14/18 13:30 Sodium 145 mmol/L (137-145) 05/14/18 13:30 Potassium 4.1 mmol/L (3.4-5.1) 05/14/18 13:30 Chloride 112 mmol/L (98-107) H 05/14/18 13:30 Carbon Dioxide 20 mmol/L (22-32) L 05/14/18 13:30 BUN 14 mg/dL (7-17) 05/14/18 13:30 Creatinine 0.80 mg/dL (0.52-1.04) 05/14/18 13:30 Estimated GFR > 60.0 mL/min (>60) 05/14/18 13:30 BUN/Creatinine Ratio 17.5 (6-22) 05/14/18 13:30 Glucose 119 mg/dL (80-110) H 05/14/18 13:30 Calcium 8.8 mg/dL (8.4-10.2) 05/14/18 13:30 Iron 92 ug/dL (37-170) 05/14/18 13:30 TIBC 327 ug/dL (265-497) 05/14/18 13:30 % Saturation 28 % (15-50) 05/14/18 13:30 Transferrin 269 mg/dL (206-381) 05/14/18 13:30 Ferritin 15.3 ng/mL (11.1-264) 05/14/18 13:30 Total Bilirubin 0.6 mg/dL (0.2-1.3) 05/14/18 13:30 AST 30 IU/L (14-36) 05/14/18 13:30 ALT 37 IU/L (9-52) 05/14/18 13:30 Alkaline Phosphatase 97 U/L (38-126) 05/14/18 13:30 Lactate Dehydrogenase 469 U/L (313-618) 03/30/18 14:34 Total Protein 7.3 g/dL (6.3-8.2) 05/14/18 13:30 Albumin 4.0 g/dL (3.5-5.0) 05/14/18 13:30 Globulin 3.3 g/dL (1.7-4.1) 05/14/18 13:30 Albumin/Globulin Ratio 1.2 (1.0-2.8) 05/14/18 13:30 Assessment and Plan (1) Iron deficiency anemia following bariatric surgery Problem details: Due to severe obesity (> 400 lb), she underwent gastric bypass surgery in 2002. She was found to be iron deficient with ferritin as low as 3.5 on 06/27/2016. Assessment: She has iron deficiency anemia as a result of malabsorption due to previous gastric bypass surgery. Now after iron supplementation, it has already resolved. Plan: Monitor CBC/D and iron panel regularly. Next follow up in 3 months, check CBC, CMP, Fe panel and Ferritin (2) Polycythemia Problem details: She had serious iron deficiency anemia as a result of gastric bypass surgery in 2002. She had oral iron and recent intravenous iron supplementation. But she developed polycythemia with H/H 16.2/48.9 on 03/03/2018 depite a ferritin level of only 15.6. [id number] mutation testing was negative. Assessment: I reviewed the laboratory tests with the patient. Patient's hemoglobin/ hematocrit level apparently have plateaued and are now beginning to trend downward. I talked with her that given this new lab results, I think we will monitor her blood counts every 3 weeks instead of every month. Plan: RTC in three months, CBC, CMP, Fe panel, Ferritin
[2018-05-21 10:34] VITALS: BP 143/92; PULSE 79; RESP 18; TEMP 36.9; O2SAT 98
[2018-08-05 16:06] LABS: Add Manual Diff / Slide Review NO; Basophils Absolute Auto 0 /uL (0-100); Basophils Percent Auto 0.4 % (0-2); Eosinophils Absolute Auto 300 /uL (0-450); Eosinophils Percent Auto 3.5 % (2-4); Hematocrit 48.2 % (36-46); Hemoglobin 15.9 g/dL (12.0-16.0); Lymphocytes Absolute Auto 1400 /uL (1100-4500); Lymphocytes Percent Auto 16.9 % (25-40); Mean Corpuscular HGB Conc 32.9 % (30-36); Mean Corpuscular Hemoglobin 28.8 PG (26-34); Mean Corpuscular Volume 87.4 fL (80-100); Monocytes Absolute Auto 600 /uL (0-900); Monocytes Percent Auto 7.5 % (3-14); Neutrophils Absolute Auto 6100 /uL (1500-7000); Neutrophils Percent Auto 71.7 % (50-75); Platelet Count 260 X10^3/uL (150-400); Red Blood Cell Count 5.51 X10^6/uL (4.0-5.2); Red Cell Distribution Width 14.8 % (11.6-14.8); White Blood Cell Count 8.5 X10^3/uL (4.5-11.0)
[2018-08-05 16:58] LABS: HEMOLYSIS 18 (0-50); Iron 84 ug/dL (37-170)
[2018-08-05 17:00] LABS: Alanine Aminotransferase 52 IU/L (9-52); Albumin 3.8 g/dL (3.5-5.0); Albumin Globulin Ratio 1.2 (1.0-2.8); Alkaline Phosphatase 112 U/L (38-126); Aspartate Aminotransferase 31 IU/L (14-36); BUN Creatinine Ratio 15.6 (6-22); Bilirubin Total 0.6 mg/dL (0.2-1.3); Blood Urea Nitrogen 14 mg/dL (7-17); Calcium 8.8 mg/dL (8.4-10.2); Carbon Dioxide 21 mmol/L (22-32); Chloride 112 mmol/L (98-107); Estimated Glomerular Filt Rate > 60.0 mL/min (>60); Globulin 3.1 g/dL (1.7-4.1); Glucose 99 mg/dL (80-110); HEMOLYSIS < 15 (0-50); Potassium 4.2 mmol/L (3.4-5.1); Sodium 142 mmol/L (137-145); Total Protein 6.9 g/dL (6.3-8.2)
[2018-08-05 17:08] LABS: Percent Iron Saturation 24 % (15-50); Total Iron Binding Capacity 354 ug/dL (265-497); Transferrin 283 mg/dL (206-381)
[2018-08-05 17:35] LABS: Ferritin 16.9 ng/mL (11.1-264)
--- NOTE | 2018-08-11 08:13 | P.PNONC_ITS ---
PN -Subjective Interval history: Ms. Duvall is a 63-year-old woman with history of iron deficiency anemia. She presents here today for scheduled follow-up visit. She was previously under the care of Dr Leigh, and Dr Case. Due to severe obesity (> 400 lb), she underwent gastric bypass surgery in 2002. She was able to lose 130 lb according to the note. She was found to be iron deficient with ferritin as low as 3.5 on 06/27/2016. She tried oral iron but did not tolerated. She received treatment with 5 doses of iron sucrose 200 mg in June 2016. Two more doses were subsequently given. Her ferritin level went up to 34.2 on 08/02/2016. Her H/H have been normalized since 08/02/2016, and remarkably have been mildly polycythemic with most recent H/H 16.2/48.9 on 03/03/2018. She has not required any iron infusions since June of 2016. She has also stopped oral iron completely. Patient's JAK2 V617F mutation analysis was negative. Since her previous visit, patient said that she has been doing well, and she denies any new signs or symptoms. Especially she denies any shortness of breath or chest pain. No vision changes or headaches. No change in appetite, activity tolerance. She denies abdominal pain or diarrhea or constipation however she admits to some fullness in her abdomen. She denies any tingling or numbing of hands and feet although she has chronic balance issues for which she has been working with her PCP. She denies any aqua sensitivity, denies edema. Past medical history Gastric bypass Dr. Moose Doyle 2002 Iron deficiency B12 deficiency History of panic attacks - Patient Self-Reported Symptoms SR Musculoskeletal issues: Back or neck pain Home Medications and Allergies Home Medications Medication Instructions Recorded Confirmed Type buspirone 5 mg PO BID 09/26/17 03/09/18 History Allergies Allergy/AdvReac Type Severity Reaction Status Date / Time codeine [CODEINE] Allergy Unknown HIVES Verified 01/07/18 00:09 Exam - Constitutional positive no acute distress, positive morbidly obese - Routine HEENT Exam Eye: Present: conjunctivae pink. Absent: conjunctival icterus, scleral injection ENT: Present: mucous membranes moist, oropharynx clear. Absent: dentition n ormal - Routine Neck Exam Present: supple. Absent: lymphadenopathy - Routine Respiratory Exam Present: Clear to auscultation bilaterally. Absent: rales, rhonchi, wheezes - Routine Cardiovascular Exam Present: RRR, S1, S2. Absent: murmur, gallop, rubs, JVD - Routine Abdominal Exam Present: soft, normoactive bowel sounds. Absent: tenderness, distended, guarding, organomegaly - Routine Extremities Exam Absent: edema, calf tenderness - Routine Skin Exam Present: intact, normal turgor. Absent: rash - Routine Neurological Exam Present: alert, oriented X3 - Routine Psychiatric Exam Present: normal affect Results - Labs Laboratory Last Values WBC 8.5 X10^3/uL (4.5-11.0) 08/05/18 15:38 RBC 5.51 X10^6/uL (4.0-5.2) H 08/05/18 15:38 Hgb 15.9 g/dL (12.0-16.0) 08/05/18 15:38 Hct 48.2 % (36-46) H 08/05/18 15:38 MCV 87.4 fL (80-100) 08/05/18 15:38 MCH 28.8 PG (26-34) 08/05/18 15:38 MCHC 32.9 % (30-36) 08/05/18 15:38 RDW 14.8 % (11.6-14.8) 08/05/18 15:38 Plt Count 260 X10^3/uL (150-400) 08/05/18 15:38 Neut % (Auto) 71.7 % (50-75) 08/05/18 15:38 Lymph % (Auto) 16.9 % (25-40) L 08/05/18 15:38 [place] % (Auto) 7.5 % (3-14) 08/05/18 15:38 Eos % (Auto) 3.5 % (2-4) 08/05/18 15:38 Baso % (Auto) 0.4 % (0-2) 08/05/18 15:38 Neut # (Auto) 6100 /uL (6571-7823) 08/05/18 15:38 Lymph # (Auto) 1400 /uL (8071-8324) 08/05/18 15:38 [place] # (Auto) 600 /uL (0-900) 08/05/18 15:38 Eos # (Auto) 300 /uL (0-450) 08/05/18 15:38 Baso # (Auto) 0 /uL (0-100) 08/05/18 15:38 Sodium 142 mmol/L (137-145) 08/05/18 15:38 Potassium 4.2 mmol/L (3.4-5.1) 08/05/18 15:38 Chloride 112 mmol/L (98-107) H 08/05/18 15:38 Carbon Dioxide 21 mmol/L (22-32) L 08/05/18 15:38 BUN 14 mg/dL (7-17) 08/05/18 15:38 Creatinine 0.90 mg/dL (0.52-1.04) 08/05/18 15:38 Estimated GFR > 60.0 mL/min (>60) 08/05/18 15:38 BUN/Creatinine Ratio 15.6 (6-22) 08/05/18 15:38 Glucose 99 mg/dL (80-110) 08/05/18 15:38 Calcium 8.8 mg/dL (8.4-10.2) 08/05/18 15:38 Iron 84 ug/dL (37-170) 08/05/18 15:38 TIBC 354 ug/dL (265-497) 08/05/18 15:38 % Saturation 24 % (15-50) 08/05/18 15:38 Transferrin 283 mg/dL (206-381) 08/05/18 15:38 Ferritin 16.9 ng/mL (11.1-264) 08/05/18 15:38 Total Bilirubin 0.6 mg/dL (0.2-1.3) 08/05/18 15:38 AST 31 IU/L (14-36) 08/05/18 15:38 ALT 52 IU/L (9-52) 08/05/18 15:38 Alkaline Phosphatase 112 U/L (38-126) 08/05/18 15:38 Lactate Dehydrogenase 469 U/L (313-618) 03/30/18 14:34 Total Protein 6.9 g/dL (6.3-8.2) 08/05/18 15:38 Albumin 3.8 g/dL (3.5-5.0) 08/05/18 15:38 Globulin 3.1 g/dL (1.7-4.1) 08/05/18 15:38 Albumin/Globulin Ratio 1.2 (1.0-2.8) 08/05/18 15:38 Assessment and Plan (1) Iron deficiency anemia following bariatric surgery Problem details: Due to severe obesity (> 400 lb), she underwent gastric bypass surgery in 2002. She was found to be iron deficient with ferritin as low as 3.5 on 06/27/2016. Assessment: She has iron deficiency anemia as a result of malabsorption due to previous gastric bypass surgery. Iron panel August 05, 2018 demonstrates iron of 84 with saturation 24%. No indication at this time patient is requiring any iron supplementation. Plan: Monitor CBC/D and iron panel regularly. Next follow up in approx [address] Laws (2) Polycythemia Problem details: She had serious iron deficiency anemia as a result of gastric bypass surgery in 2002. She had oral iron and recent intravenous iron supplementation. But she developed polycythemia with H/H 16.2/48.9 on 03/03/2018 depite a ferritin level of only 15.6. [id number] mutation testing was negative. Assessment: CBC demonstrates hemoglobin of 15.9 hematocrit 48.2. Hematocrit has been consistently elevated since March of 2018. In review of previous visit note with Dr. Laws May 21, 2018 at that time hemoglobin 15.[address] laws had indicated no phlebotomy was required at that time. Patient now has had consistently elevated hematocrit specifically <46 we may need to reconsider phlebotomy. Reassuringly patient has no symptoms such as flushing sensation, burning sensation, vision changes, headache, edema. No palpable splenomegaly on exam however quite difficult to examine noting obesity. I will order US of spleen noting pt report of abd fullness and have pt follow up with Dr Laws shortly thereafter. I will also order another H&H for his review. Plan: 1 month Dr Laws, H&H, review discuss possibility of therapeutic phlebotomy. Review ultrasound (3) Obesity Current visit: No Status: Acute Likely contributing, certainly has risk factors for sleep apnea. Noting JAK2 mutation was negative this certainly raises the suspicion sleep apnea might be contributing to polycythemia. I discussed with the patient getting a sleep study she is not interested at this time. She states ?I do not have apnea?. We discussed that she might not be aware, we also discussed that obesity is a risk factor. Pt states I will think about it.
[2018-08-11 10:41] VITALS: BP 137/87; PULSE 81; RESP 18; TEMP 36.3; O2SAT 97
--- NOTE | 2018-08-27 16:34 | P.PNONC_ITS ---
PN -Subjective Interval history: Ms. Duvall is a 63-year-old woman with history of iron deficiency anemia. She presents here today for scheduled follow-up visit. She was previously under the care of Dr Leigh, and Dr Case. Due to severe obesity (> 400 lb), she underwent gastric bypass surgery in 2002. She was able to lose 130 lb according to the note. She was found to be iron deficient with ferritin as low as 3.5 on 06/27/2016. She tried oral iron but did not tolerated. She received treatment with 5 doses of iron sucrose 200 mg in June 2016. Two more doses were subsequently given. Her ferritin level went up to 34.2 on 08/02/2016. Her H/H have been normalized since 08/02/2016, and remarkably have been mildly polycythemic. She has not required any iron infusions since June of 2016. She has also stopped oral iron completely. Patient's JAK2 V617F mutation analysis was negative. Patient came in here today for scheduled follow-up visit. Patient underwent an ultrasound study recently to evaluate if there is any splenomegaly. The spleen size was measured 11.3 cm long with an estimated volume of 144 cubic cm. Past medical history Gastric bypass Dr. Moose Doyle 2002 Iron deficiency B12 deficiency History of panic attacks - Patient Self-Reported Symptoms SR Musculoskeletal issues: Back or neck pain - Additional ROS All systems PM: reviewed and no additional remarkable complaints except as stated Home Medications and Allergies Home Medications Medication Instructions Recorded Confirmed Type buspirone 5 mg PO BID 09/26/17 08/27/18 History Allergies Allergy/AdvReac Type Severity Reaction Status Date / Time codeine [CODEINE] Allergy Unknown HIVES Verified 01/07/18 00:09 Exam Vital signs: Last Vital Signs Temp 97.3 F L 08/27/18 16:55 Pulse 86 08/27/18 16:55 Resp 22 08/27/18 16:55 BP 109/73 08/27/18 16:55 Pulse Ox 98 08/27/18 16:55 ECOG 1 Narrative: Constitutional: Well developed, well nourished, not in any acute respiratory distress, obese, pleasant and cooperative. Here by herself HEENT: Normocephalic atraumatic. Extraocular muscle movement intact. Pupils are round, equal and reactive to light and accommodations. Anicteric sclera. Neck: Supple, symmetrical, and tracheal midline; No palpable thyromegaly and no palpable lymph nodes. Respiratory: No use of accessory muscles. Clear to auscultation, and no wheezes or rales or rubs. Cardiovascular: Regular rate and rhythm, S1 and S2 normal, no murmurs gallops or rubs. No JVD. Abdomen: Soft, nontender, non-distended, bowel sounds normal, no palpable organomegaly, no hernia, no palpable masses. Lower extremities: No palpable pedal edema. Skin: no rashes, no ulcers, no petechiae Neurological: Awake and alert and oriented x3. CN II-XII grossly intact. No focal motor or sensory deficit. Psychiatric: Good judgment, good insight, normal affect, normal thought process, cooperative, no depression, no anxiety. Results - Labs Laboratory Last Values WBC 8.5 X10^3/uL (4.5-11.0) 08/05/18 15:38 RBC 5.51 X10^6/uL (4.0-5.2) H 08/05/18 15:38 Hgb 15.9 g/dL (12.0-16.0) 08/05/18 15:38 Hct 48.2 % (36-46) H 08/05/18 15:38 MCV 87.4 fL (80-100) 08/05/18 15:38 MCH 28.8 PG (26-34) 08/05/18 15:38 MCHC 32.9 % (30-36) 08/05/18 15:38 RDW 14.8 % (11.6-14.8) 08/05/18 15:38 Plt Count 260 X10^3/uL (150-400) 08/05/18 15:38 Neut % (Auto) 71.7 % (50-75) 08/05/18 15:38 Lymph % (Auto) 16.9 % (25-40) L 08/05/18 15:38 [place] % (Auto) 7.5 % (3-14) 08/05/18 15:38 Eos % (Auto) 3.5 % (2-4) 08/05/18 15:38 Baso % (Auto) 0.4 % (0-2) 08/05/18 15:38 Neut # (Auto) 6100 /uL (9378-3613) 08/05/18 15:38 Lymph # (Auto) 1400 /uL (0852-6000) 08/05/18 15:38 [place] # (Auto) 600 /uL (0-900) 08/05/18 15:38 Eos # (Auto) 300 /uL (0-450) 08/05/18 15:38 Baso # (Auto) 0 /uL (0-100) 08/05/18 15:38 Sodium 142 mmol/L (137-145) 08/05/18 15:38 Potassium 4.2 mmol/L (3.4-5.1) 08/05/18 15:38 Chloride 112 mmol/L (98-107) H 08/05/18 15:38 Carbon Dioxide 21 mmol/L (22-32) L 08/05/18 15:38 BUN 14 mg/dL (7-17) 08/05/18 15:38 Creatinine 0.90 mg/dL (0.52-1.04) 08/05/18 15:38 Estimated GFR > 60.0 mL/min (>60) 08/05/18 15:38 BUN/Creatinine Ratio 15.6 (6-22) 08/05/18 15:38 Glucose 99 mg/dL (80-110) 08/05/18 15:38 Calcium 8.8 mg/dL (8.4-10.2) 08/05/18 15:38 Iron 84 ug/dL (37-170) 08/05/18 15:38 TIBC 354 ug/dL (265-497) 08/05/18 15:38 % Saturation 24 % (15-50) 08/05/18 15:38 Transferrin 283 mg/dL (206-381) 08/05/18 15:38 Ferritin 16.9 ng/mL (11.1-264) 08/05/18 15:38 Total Bilirubin 0.6 mg/dL (0.2-1.3) 08/05/18 15:38 AST 31 IU/L (14-36) 08/05/18 15:38 ALT 52 IU/L (9-52) 08/05/18 15:38 Alkaline Phosphatase 112 U/L (38-126) 08/05/18 15:38 Lactate Dehydrogenase 469 U/L (313-618) 03/30/18 14:34 Total Protein 6.9 g/dL (6.3-8.2) 08/05/18 15:38 Albumin 3.8 g/dL (3.5-5.0) 08/05/18 15:38 Globulin 3.1 g/dL (1.7-4.1) 08/05/18 15:38 Albumin/Globulin Ratio 1.2 (1.0-2.8) 08/05/18 15:38 Assessment and Plan (1) Polycythemia Problem details: She had serious iron deficiency anemia as a result of gastric bypass surgery in 2002. She had oral iron and recent intravenous iron supplementation. But she developed polycythemia with H/H 16.2/48.9 on 03/03/2018 depite a ferritin level of only 15.6. [id number] mutation testing was negative. Assessment: I discussed with the patient about the polycythemia. It seems to me that it is gradually improving. The patient has severe obesity which might cause sleep apnea. And sleep apnea is one possible explanation for the polycythemia. I talked with the patient that the exact etiology of her polycythemia at this moment is still unknown. Since it is improving, I will not do phlebotomy for now. I will repeat the genetic study to exclude possibility of polycythemia vera Plan: 1. CBC, and CalR with reflex MPL study on 09/07/2018 2. RTC on 09/21/2018 for follow up visit. (2) Iron deficiency anemia following bariatric surgery Problem details: Due to severe obesity (> 400 lb), she underwent gastric bypass surgery in 2002. She was found to be iron deficient with ferritin as low as 3.5 on 06/27/2016. Patient underwent iron infusion at that time. The since 2016 patient has been off iron supplementation. Her iron status has been within normal range and no anemia. [place] patient developed mild polycythemia (See above) Assessment: She has iron deficiency anemia as a result of malabsorption due to previous gastric bypass surgery. Plan: Monitor CBC/D and iron panel regularly. (3) Obesity We will discuss with the patient about sleep apnea study when she comes back.
[2018-08-27 16:55] VITALS: BP 109/73; PULSE 86; RESP 22; TEMP 36.3; O2SAT 98
[2018-10-06 13:29] LABS: Add Manual Diff / Slide Review NO; Basophils Absolute Auto 0 /uL (0-100); Basophils Percent Auto 0.5 % (0-2); Eosinophils Absolute Auto 300 /uL (0-450); Eosinophils Percent Auto 3.9 % (2-4); Hematocrit 46.4 % (36-46); Hemoglobin 15.6 g/dL (12.0-16.0); Lymphocytes Absolute Auto 1400 /uL (1100-4500); Lymphocytes Percent Auto 18.9 % (25-40); Mean Corpuscular HGB Conc 33.7 % (30-36); Mean Corpuscular Hemoglobin 29.4 PG (26-34); Mean Corpuscular Volume 87.2 fL (80-100); Monocytes Absolute Auto 600 /uL (0-900); Monocytes Percent Auto 7.6 % (3-14); Neutrophils Absolute Auto 5100 /uL (1500-7000); Neutrophils Percent Auto 69.1 % (50-75); Platelet Count 268 X10^3/uL (150-400); Red Blood Cell Count 5.31 X10^6/uL (4.0-5.2); Red Cell Distribution Width 14.3 % (11.6-14.8); White Blood Cell Count 7.4 X10^3/uL (4.5-11.0)
--- NOTE | 2018-10-12 09:29 | P.PNONC_ITS ---
PN -Subjective Interval history: Ms. Duvall is a 63-year-old woman with history of iron deficiency anemia. She presents here today for scheduled follow-up visit. She was previously under the care of Dr Leigh, and Dr Case. Due to severe obesity (> 400 lb), she underwent gastric bypass surgery in 2002. She was able to lose 130 lb according to the note. She was found to be iron deficient with ferritin as low as 3.5 on 06/27/2016. She tried oral iron but did not tolerated. She received treatment with 5 doses of iron sucrose 200 mg in June 2016. Two more doses were subsequently given. Her ferritin level went up to 34.2 on 08/02/2016. Her H/H have been normalized since 08/02/2016, and remarkably have been mildly polycythemic. She has not required any iron infusions since June of 2016. She has also stopped oral iron completely. Patient's JAK2 V617F mutation analysis was negative. Patient presents here today for scheduled follow-up visit. No new signs or symptoms. Her complete genetic testing of JUNIE 2, CalR and MPL are without abnormal findings ([facility]) Past medical history Gastric bypass Dr. Moose Doyle 2002 Iron deficiency B12 deficiency History of panic attacks - Patient Self-Reported Symptoms SR Musculoskeletal issues: Back or neck pain - Additional ROS All systems PM: reviewed and no additional remarkable complaints except as stated Home Medications and Allergies Home Medications Medication Instructions Recorded Confirmed Type buspirone 5 mg PO BID 09/26/17 08/27/18 History Allergies Allergy/AdvReac Type Severity Reaction Status Date / Time codeine [CODEINE] Allergy Unknown HIVES Verified 01/07/18 00:09 Exam Vital signs: Last Vital Signs Temp 98.4 F 10/12/18 15:29 Pulse 16 L 10/12/18 15:29 Resp 16 10/12/18 15:29 BP 143/55 H 10/12/18 15:29 Pulse Ox 98 10/12/18 15:29 ECOG 1 Narrative: Constitutional: WDWN, NAD, obese, pleasant and cooperative. Here by herself HEENT: Normocephalic atraumatic. Extraocular muscle movement intact. Pupils are round, equal and reactive to light and accommodations. Anicteric sclera. Neck: Supple, symmetrical, and tracheal midline; No palpable thyromegaly and no palpable lymph nodes. Respiratory: No use of accessory muscles. Clear to auscultation, and no wheezes Cardiovascular: Regular rate and rhythm, S1 and S2 normal, no murmurs gallops or rubs. No JVD. Abdomen: Soft, nontender, non-distended, bowel sounds normal, no palpable organomegaly, no hernia, no palpable masses. Lower extremities: No palpable pedal edema. Skin: no rashes, no ulcers, no petechiae Neurological: Awake and alert and oriented x3. CN II-XII grossly intact. No focal motor or sensory deficit. Psychiatric: Good judgment, good insight, normal affect, normal thought process, cooperative, no depression, no anxiety. Results - Labs Laboratory Last Values WBC 7.4 X10^3/uL (4.5-11.0) 10/06/18 13:13 RBC 5.31 X10^6/uL (4.0-5.2) H 10/06/18 13:13 Hgb 15.6 g/dL (12.0-16.0) 10/06/18 13:13 Hct 46.4 % (36-46) H 10/06/18 13:13 MCV 87.2 fL (80-100) 10/06/18 13:13 MCH 29.4 PG (26-34) 10/06/18 13:13 MCHC 33.7 % (30-36) 10/06/18 13:13 RDW 14.3 % (11.6-14.8) 10/06/18 13:13 Plt Count 268 X10^3/uL (150-400) 10/06/18 13:13 Neut % (Auto) 69.1 % (50-75) 10/06/18 13:13 Lymph % (Auto) 18.9 % (25-40) L 10/06/18 13:13 [place] % (Auto) 7.6 % (3-14) 10/06/18 13:13 Eos % (Auto) 3.9 % (2-4) 10/06/18 13:13 Baso % (Auto) 0.5 % (0-2) 10/06/18 13:13 Neut # (Auto) 5100 /uL (8789-2817) 10/06/18 13:13 Lymph # (Auto) 1400 /uL (2253-2406) 10/06/18 13:13 [place] # (Auto) 600 /uL (0-900) 10/06/18 13:13 Eos # (Auto) 300 /uL (0-450) 10/06/18 13:13 Baso # (Auto) 0 /uL (0-100) 10/06/18 13:13 Sodium 142 mmol/L (137-145) 08/05/18 15:38 Potassium 4.2 mmol/L (3.4-5.1) 08/05/18 15:38 Chloride 112 mmol/L (98-107) H 08/05/18 15:38 Carbon Dioxide 21 mmol/L (22-32) L 08/05/18 15:38 BUN 14 mg/dL (7-17) 08/05/18 15:38 Creatinine 0.90 mg/dL (0.52-1.04) 08/05/18 15:38 Estimated GFR > 60.0 mL/min (>60) 08/05/18 15:38 BUN/Creatinine Ratio 15.6 (6-22) 08/05/18 15:38 Glucose 99 mg/dL (80-110) 08/05/18 15:38 Calcium 8.8 mg/dL (8.4-10.2) 08/05/18 15:38 Iron 84 ug/dL (37-170) 08/05/18 15:38 TIBC 354 ug/dL (265-497) 08/05/18 15:38 % Saturation 24 % (15-50) 08/05/18 15:38 Transferrin 283 mg/dL (206-381) 08/05/18 15:38 Ferritin 16.9 ng/mL (11.1-264) 08/05/18 15:38 Total Bilirubin 0.6 mg/dL (0.2-1.3) 08/05/18 15:38 AST 31 IU/L (14-36) 08/05/18 15:38 ALT 52 IU/L (9-52) 08/05/18 15:38 Alkaline Phosphatase 112 U/L (38-126) 08/05/18 15:38 Lactate Dehydrogenase 469 U/L (313-618) 03/30/18 14:34 Total Protein 6.9 g/dL (6.3-8.2) 08/05/18 15:38 Albumin 3.8 g/dL (3.5-5.0) 08/05/18 15:38 Globulin 3.1 g/dL (1.7-4.1) 08/05/18 15:38 Albumin/Globulin Ratio 1.2 (1.0-2.8) 08/05/18 15:38 Assessment and Plan (1) Polycythemia Overview: She had serious iron deficiency anemia as a result of gastric bypass surgery in 2002. She had oral iron and recent intravenous iron supplementation. But she developed polycythemia with H/H 16.2/48.9 on 03/03/2018 depite a ferritin level of only 15.6. [id number] mutation testing was negative. Assessment: I discussed with the patient about the polycythemia. Her HGB/HCT continue to imrpove. I talked with her that the complete said of tests for JAK2, CalR, and MPL are normal. I think that her polycythemia probably is related to possible sleep apnea. I recommended the patient think seriously about getting a sleep study. Patient voiced understanding. Plan: 1. CBC, CMP, iron panel, ferritin in 3 months 2. RTC after blood work (2) Iron deficiency anemia following bariatric surgery Overview: Due to severe obesity (> 400 lb), she underwent gastric bypass surgery in 2002. She was found to be iron deficient with ferritin as low as 3.5 on 06/27/2016. Patient underwent iron infusion at that time. The since 2016 patient has been off iron supplementation. Her iron status has been within normal range and no anemia. [place] the [place] patient developed mild polycythemia (See above) Assessment: She has iron deficiency anemia as a result of malabsorption due to previous gastric bypass surgery. Plan: Monitor CBC/D and iron panel regularly. (3) Obesity Today, I talked with her about the sleep apnea test. Patient said that she is going to think about it and make decision..
[2018-10-12 15:29] VITALS: BP 143/55; PULSE 16; RESP 16; TEMP 36.9; O2SAT 98
[2019-01-27 08:26] LABS: Add Manual Diff / Slide Review NO; Basophils Absolute Auto 0 /uL (0-100); Basophils Percent Auto 0.4 % (0-2); Eosinophils Absolute Auto 300 /uL (0-450); Eosinophils Percent Auto 4.9 % (2-4); Hematocrit 47.3 % (36-46); Hemoglobin 15.9 g/dL (12.0-16.0); Lymphocytes Absolute Auto 1400 /uL (1100-4500); Lymphocytes Percent Auto 22.2 % (25-40); Mean Corpuscular HGB Conc 33.7 % (30-36); Mean Corpuscular Hemoglobin 29.1 PG (26-34); Mean Corpuscular Volume 86.5 fL (80-100); Monocytes Absolute Auto 500 /uL (0-900); Monocytes Percent Auto 7.9 % (3-14); Neutrophils Absolute Auto 4100 /uL (1500-7000); Neutrophils Percent Auto 64.6 % (50-75); Platelet Count 256 X10^3/uL (150-400); Red Blood Cell Count 5.47 X10^6/uL (4.0-5.2); Red Cell Distribution Width 14.2 % (11.6-14.8); White Blood Cell Count 6.4 X10^3/uL (4.5-11.0)
[2019-01-27 08:31] LABS: Alanine Aminotransferase 37 IU/L (9-52); Albumin 3.9 g/dL (3.5-5.0); Albumin Globulin Ratio 1.2 (1.0-2.8); Alkaline Phosphatase 111 U/L (38-126); Aspartate Aminotransferase 33 IU/L (14-36); BUN Creatinine Ratio 25.7 (6-22); Bilirubin Total 0.8 mg/dL (0.2-1.3); Blood Urea Nitrogen 18 mg/dL (7-17); Calcium 9.3 mg/dL (8.4-10.2); Carbon Dioxide 26 mmol/L (22-32); Chloride 110 mmol/L (98-107); Estimated Glomerular Filt Rate > 60.0 mL/min (>60); Globulin 3.3 g/dL (1.7-4.1); Glucose 91 mg/dL (80-110); HEMOLYSIS < 15 (0-50); Potassium 4.3 mmol/L (3.4-5.1); Sodium 144 mmol/L (137-145); Total Protein 7.2 g/dL (6.3-8.2)
[2019-01-27 08:40] LABS: HEMOLYSIS < 15 (0-50); Iron 129 ug/dL (37-170)
[2019-01-27 08:50] LABS: Percent Iron Saturation 38 % (15-50); Total Iron Binding Capacity 343 ug/dL (265-497); Transferrin 285 mg/dL (206-381)
[2019-01-27 09:06] LABS: Ferritin 13.5 ng/mL (11.1-264)
[2019-02-04 14:15] VITALS: BP 128/83; PULSE 75; RESP 18; TEMP 36.9; O2SAT 97
--- NOTE | 2019-02-04 14:38 | ONC.PN ---
PN -Subjective Interval history: ID/CC: Ms. Duvall is a 63-year-old woman with history of iron deficiency anemia here for scheduled follow-up visit. Hematolgy: She was previously under the care of Dr Leigh, and Dr Case. Due to severe obesity (> 400 lb), she underwent gastric bypass surgery in 2002. She was able to lose 130 lb according to the note. She was found to be iron deficient with ferritin as low as 3.5 on 06/27/2016. She tried oral iron but did not tolerated. She received treatment with 5 doses of iron sucrose 200 mg in June 2016. Two more doses were subsequently given. Her ferritin level went up to 34.2 on 08/02/2016. Her H/H have been normalized since 08/02/2016, and remarkably have been mildly polycythemic. She has not required any iron infusions since June of 2016. She has also stopped oral iron completely. Patient's JAK2 V617F mutation analysis was negative. Her complete genetic testing of JUNIE 2, CalR and MPL are without abnormal findings ([facility]) Interim Events: Clinically, patient has been doing well without any new signs symptoms. Past medical history Gastric bypass Dr. Moose Doyle 2002 Iron deficiency B12 deficiency History of panic attacks - Patient Self-Reported Symptoms SR Musculoskeletal issues: Back or neck pain - Additional ROS All systems PM: reviewed and no additional remarkable complaints except as stated Home Medications and Allergies Home Medications Medication Instructions Recorded Confirmed Type buspirone 5 mg PO BID 09/26/17 02/04/19 History Allergies Allergy/AdvReac Type Severity Reaction Status Date / Time codeine [CODEINE] Allergy Unknown HIVES Verified 01/07/18 00:09 Exam Vital signs: Vital Signs Temp Pulse Resp BP Pulse Ox 02/04/19 14:15 98.4 F 75 18 128/83 97 Intake and Output 02/03/19 02/04/19 02/04/19 23:59 07:59 15:59 Other: Weight 122.7 kg Patient Weight 02/04/19 23:59 Weight 122.7 kg Narrative: Constitutional: WDWN, NAD, obese, pleasant and cooperative. Here by herself, ECOG 1 HEENT: Normocephalic atraumatic. Extraocular muscle movement intact. Pupils are round, equal and reactive to light and accommodations. Anicteric sclera. Neck: Supple, symmetrical, and tracheal midline; No palpable thyromegaly and no palpable lymph nodes. Respiratory: No use of accessory muscles. Clear to auscultation, and no wheezes Cardiovascular: Regular rate and rhythm, S1 and S2 normal, no murmurs gallops or rubs. No JVD. Abdomen: Soft, nontender, non-distended, bowel sounds normal, no palpable organomegaly, no hernia, no palpable masses. Lower extremities: No palpable pedal edema. Skin: no rashes, no ulcers, no petechiae Neurological: Awake and alert and oriented x3. CN II-XII grossly intact. No focal motor or sensory deficit. Psychiatric: Good judgment, good insight, normal affect, normal thought process, cooperative, no depression, no anxiety. Results - Labs Laboratory Last Values WBC 6.4 X10^3/uL (4.5-11.0) 01/27/19 07:52 RBC 5.47 X10^6/uL (4.0-5.2) H 01/27/19 07:52 Hgb 15.9 g/dL (12.0-16.0) 01/27/19 07:52 Hct 47.3 % (36-46) H 01/27/19 07:52 MCV 86.5 fL (80-100) 01/27/19 07:52 MCH 29.1 PG (26-34) 01/27/19 07:52 MCHC 33.7 % (30-36) 01/27/19 07:52 RDW 14.2 % (11.6-14.8) 01/27/19 07:52 Plt Count 256 X10^3/uL (150-400) 01/27/19 07:52 Neut % (Auto) 64.6 % (50-75) 01/27/19 07:52 Lymph % (Auto) 22.2 % (25-40) L 01/27/19 07:52 [place] % (Auto) 7.9 % (3-14) 01/27/19 07:52 Eos % (Auto) 4.9 % (2-4) H 01/27/19 07:52 Baso % (Auto) 0.4 % (0-2) 01/27/19 07:52 Neut # (Auto) 4100 /uL (8077-6432) 01/27/19 07:52 Lymph # (Auto) 1400 /uL (3146-2225) 01/27/19 07:52 [place] # (Auto) 500 /uL (0-900) 01/27/19 07:52 Eos # (Auto) 300 /uL (0-450) 01/27/19 07:52 Baso # (Auto) 0 /uL (0-100) 01/27/19 07:52 Sodium 144 mmol/L (137-145) 01/27/19 07:52 Potassium 4.3 mmol/L (3.4-5.1) 01/27/19 07:52 Chloride 110 mmol/L (98-107) H 01/27/19 07:52 Carbon Dioxide 26 mmol/L (22-32) 01/27/19 07:52 BUN 18 mg/dL (7-17) H 01/27/19 07:52 Creatinine 0.70 mg/dL (0.52-1.04) 01/27/19 07:52 Estimated GFR > 60.0 mL/min (>60) 01/27/19 07:52 BUN/Creatinine Ratio 25.7 (6-22) H 01/27/19 07:52 Glucose 91 mg/dL (80-110) 01/27/19 07:52 Calcium 9.3 mg/dL (8.4-10.2) 01/27/19 07:52 Iron 129 ug/dL (37-170) 01/27/19 07:52 TIBC 343 ug/dL (265-497) 01/27/19 07:52 % Saturation 38 % (15-50) 01/27/19 07:52 Transferrin 285 mg/dL (206-381) 01/27/19 07:52 Ferritin 13.5 ng/mL (11.1-264) 01/27/19 07:52 Total Bilirubin 0.8 mg/dL (0.2-1.3) 01/27/19 07:52 AST 33 IU/L (14-36) 01/27/19 07:52 ALT 37 IU/L (9-52) 01/27/19 07:52 Alkaline Phosphatase 111 U/L (38-126) 01/27/19 07:52 Lactate Dehydrogenase 469 U/L (313-618) 03/30/18 14:34 Total Protein 7.2 g/dL (6.3-8.2) 01/27/19 07:52 Albumin 3.9 g/dL (3.5-5.0) 01/27/19 07:52 Globulin 3.3 g/dL (1.7-4.1) 01/27/19 07:52 Albumin/Globulin Ratio 1.2 (1.0-2.8) 01/27/19 07:52 Ref Test (Refrig) 10/06/18 13:13 Assessment and Plan (1) Polycythemia Overview: She had serious iron deficiency anemia as a result of gastric bypass surgery in 2002. She had oral iron and recent intravenous iron supplementation. But she developed polycythemia with H/H 16.2/48.9 on 03/03/2018 despite a ferritin level of only 15.6. Her complete genetic testing of JUNIE 2, CalR and MPL are without abnormal findings ([facility]) Assessment: I discussed with the patient about the polycythemia. Her HGB/HCT remain stable. She has not had the test done yet. Plan: 1. CBC, CMP, iron panel, ferritin in 6 months 2. RTC after blood work (2) Iron deficiency anemia following bariatric surgery Overview: Due to severe obesity (> 400 lb), she underwent gastric bypass surgery in 2002. She was found to be iron deficient with ferritin as low as 3.5 on 06/27/2016. Patient underwent iron infusion at that time. The since 2017 patient has been off iron supplementation. Her iron status has been within normal range and no anemia. On the country patient developed mild polycythemia (See above) Assessment: She has iron deficiency anemia as a result of malabsorption due to previous gastric bypass surgery. Plan: Monitor CBC/D and iron panel regularly. (3) Obesity Continue to monitor.
[2019-07-28 16:02] LABS: Add Manual Diff / Slide Review NO; Basophils Absolute Auto 0 /uL (0-100); Basophils Percent Auto 0.5 % (0-2); Eosinophils Absolute Auto 300 /uL (0-450); Eosinophils Percent Auto 3.8 % (2-4); Hematocrit 47.7 % (36-46); Hemoglobin 16.1 g/dL (12.0-16.0); Lymphocytes Absolute Auto 1400 /uL (1100-4500); Mean Corpuscular HGB Conc 33.7 % (30-36); Mean Corpuscular Hemoglobin 29.5 PG (26-34); Mean Corpuscular Volume 87.4 fL (80-100); Monocytes Absolute Auto 700 /uL (0-900); Monocytes Percent Auto 9.7 % (3-14); Neutrophils Absolute Auto 4700 /uL (1500-7000); Platelet Count 265 X10^3/uL (150-400); Red Blood Cell Count 5.46 X10^6/uL (4.0-5.2); White Blood Cell Count 7.1 X10^3/uL (4.5-11.0)
[2019-07-28 16:15] LABS: Alanine Aminotransferase 34 IU/L (<35); Albumin 4.1 g/dL (3.5-5.0); Albumin Globulin Ratio 1.1 (1.0-2.8); Alkaline Phosphatase 113 U/L (38-126); Aspartate Aminotransferase 34 IU/L (14-36); BUN Creatinine Ratio 25.7 (6-22); Bilirubin Total 0.4 mg/dL (0.2-1.3); Blood Urea Nitrogen 18 mg/dL (7-17); Calcium 9.1 mg/dL (8.4-10.2); Carbon Dioxide 26 mmol/L (22-32); Chloride 112 mmol/L (98-107); Estimated Glomerular Filt Rate > 60.0 mL/min (>60); Globulin 3.6 g/dL (1.7-4.1); Glucose 93 mg/dL (80-110); HEMOLYSIS < 15 (0-50); Potassium 4.8 mmol/L (3.4-5.1); Sodium 145 mmol/L (137-145); Total Protein 7.7 g/dL (6.3-8.2)
[2019-07-28 16:20] LABS: HEMOLYSIS < 15 (0-50); Iron 85 ug/dL (37-170)
[2019-07-28 16:31] LABS: Percent Iron Saturation 21 % (15-50); Total Iron Binding Capacity 397 ug/dL (265-497); Transferrin 321 mg/dL (206-381)
[2019-07-28 16:50] LABS: Ferritin 12 ng/mL (11-264)
[2019-07-29 16:40] VITALS: BP 130/82; PULSE 80; RESP 18; TEMP 36.4; O2SAT 98
--- NOTE | 2019-07-29 16:56 | P.PNONC_ITS ---
PN -Subjective Interval history: ID/CC: Ms. Duvall is a 64-year-old woman with history of iron deficiency anemia, now with polycythemia here for scheduled follow-up visit. Hematolgy: Maribell is a 64 year old female. Due to severe obesity (> 400 lb), she underwent gastric bypass surgery in 2002. She was able to lose 130 lb according to the n ote. She was found to be iron deficient with ferritin as low as 3.5 on 06/27/2016. She tried oral iron, but did not tolerate well. She received treatment with 5 doses of iron sucrose 200 mg in June 2016. Her ferritin level went up to 34.2 on 08/02/2016. Her H/H have been normalized since 08/02/2016, and remarkably have been mildly polycythemic. She has not required any iron infusions since June of 2016. She has also stopped oral iron completely. Patient's JAK2 V617F mutation analysis was negative. Her complete genetic testing of JAK2, CalR and MPL are without abnormal findings ([facility]) Interim Events: Clinically, patient has been doing well without any new signs symptoms. She came in here by herself with walker. - Patient Self-Reported Symptoms SR Constitution: Fatigue/Malaise SR respiratory issues: Shortness of breath SR Musculoskeletal issues: Difficulty walking SR Neuro issues: Difficulty balancing - Additional ROS All systems PM: reviewed and no additional remarkable complaints except as stated Home Medications and Allergies Home Medications Medication Instructions Recorded Confirmed Type buspirone 5 mg PO BID 09/26/17 07/29/19 History Allergies Allergy/AdvReac Type Severity Reaction Status Date / Time codeine [CODEINE] Allergy Unknown HIVES Verified 01/07/18 00:09 Exam Vital signs: Vital Signs Temp Pulse Resp BP Pulse Ox 07/29/19 16:40 97.5 F L 80 18 130/82 98 Narrative: ECOG 1 Constitutional: WDWN, NAD, obese, cooperative. Here by herself HEENT: Normocephalic atraumatic. Extraocular muscle movement intact. Pupils are round, equal and reactive to light and accommodations. Anicteric sclera. Neck: Supple; No palpable thyromegaly and no palpable lymph nodes. Respiratory: Clear to auscultation, and no wheezes Cardiovascular: Regular rate and rhythm, S1 and S2 normal, no murmurs gallops or rubs. No JVD. Abdomen: Soft, nontender, non-distended, bowel sounds normal, no palpable organomegaly Lower extremities: No palpable pedal edema. Skin: no rashes, no ulcers, no petechiae Neurological: Awake and alert and oriented x3. CN II-XII grossly intact. No focal motor or sensory deficit. Psychiatric: Good judgment, good insight, normal affect, normal thought process, cooperative, no depression, no anxiety. Results - Labs Laboratory Last Values WBC 7.1 X10^3/uL (4.5-11.0) 07/28/19 15:51 RBC 5.46 X10^6/uL (4.0-5.2) H 07/28/19 15:51 Hgb 16.1 g/dL (12.0-16.0) H 07/28/19 15:51 Hct 47.7 % (36-46) H 07/28/19 15:51 MCV 87.4 fL (80-100) 07/28/19 15:51 MCH 29.5 PG (26-34) 07/28/19 15:51 MCHC 33.7 % (30-36) 07/28/19 15:51 RDW 14.0 % (11.6-14.8) 07/28/19 15:51 Plt Count 265 X10^3/uL (150-400) 07/28/19 15:51 Neut % (Auto) 66.0 % (50-75) 07/28/19 15:51 Lymph % (Auto) 20.0 % (25-40) L 07/28/19 15:51 [place] % (Auto) 9.7 % (3-14) 07/28/19 15:51 Eos % (Auto) 3.8 % (2-4) 07/28/19 15:51 Baso % (Auto) 0.5 % (0-2) 07/28/19 15:51 Neut # (Auto) 4700 /uL (4522-5091) 07/28/19 15:51 Lymph # (Auto) 1400 /uL (9058-7190) 07/28/19 15:51 [place] # (Auto) 700 /uL (0-900) 07/28/19 15:51 Eos # (Auto) 300 /uL (0-450) 07/28/19 15:51 Baso # (Auto) 0 /uL (0-100) 07/28/19 15:51 Sodium 145 mmol/L (137-145) 07/28/19 15:51 Potassium 4.8 mmol/L (3.4-5.1) 07/28/19 15:51 Chloride 112 mmol/L (98-107) H 07/28/19 15:51 Carbon Dioxide 26 mmol/L (22-32) 07/28/19 15:51 BUN 18 mg/dL (7-17) H 07/28/19 15:51 Creatinine 0.70 mg/dL (0.52-1.04) 07/28/19 15:51 Estimated GFR > 60.0 mL/min (>60) 07/28/19 15:51 BUN/Creatinine Ratio 25.7 (6-22) H 07/28/19 15:51 Glucose 93 mg/dL (80-110) 07/28/19 15:51 Calcium 9.1 mg/dL (8.4-10.2) 07/28/19 15:51 Iron 85 ug/dL (37-170) 07/28/19 15:51 TIBC 397 ug/dL (265-497) 07/28/19 15:51 % Saturation 21 % (15-50) 07/28/19 15:51 Transferrin 321 mg/dL (206-381) 07/28/19 15:51 Ferritin 12 ng/mL (11-264) 07/28/19 15:51 Total Bilirubin 0.4 mg/dL (0.2-1.3) 07/28/19 15:51 AST 34 IU/L (14-36) 07/28/19 15:51 ALT 34 IU/L (<35) 07/28/19 15:51 Alkaline Phosphatase 113 U/L (38-126) 07/28/19 15:51 Lactate Dehydrogenase 469 U/L (313-618) 03/30/18 14:34 Total Protein 7.7 g/dL (6.3-8.2) 07/28/19 15:51 Albumin 4.1 g/dL (3.5-5.0) 07/28/19 15:51 Globulin 3.6 g/dL (1.7-4.1) 07/28/19 15:51 Albumin/Globulin Ratio 1.1 (1.0-2.8) 07/28/19 15:51 Ref Test (Refrig) 10/06/18 13:13 Assessment and Plan (1) Polycythemia Overview: She had serious iron deficiency anemia as a result of gastric bypass surgery in 2002. She had oral iron and recent intravenous iron supplementation in 06/2016. Thereafter, she developed polycythemia with H/H 16.2/48.9 on 03/03/2018 despite a ferritin level of only 15.6. Her complete genetic testing of JAK2, CalR and MPL are without abnormal findings ([facility]) Assessment: I reviewed the laboratory test results with the patient. I informed her that the H and H are still higher than normal indicating polycythemia. The exact etiology is not clear at this moment. I will continue current active surve illance. Plan: 1. CBC, CMP, iron panel, ferritin in 6 months 2. RTC after blood work (2) Iron deficiency anemia following bariatric surgery Overview: Due to severe obesity (> 400 lb), she underwent gastric bypass surgery in 2002. She was found to be iron deficient with ferritin as low as 3.5 on 06/27/2016. Patient underwent iron infusion at that time. The since 2017 patient has been off iron supplementation. Her iron status has been within normal range and no anemia. On the contrary patient developed mild polycythemia (See above) Assessment: She has iron deficiency anemia as a result of malabsorption due to previous gastric bypass surgery. Plan: Monitor CBC/D and iron panel regularly. (3) Obesity Continue to monitor.
--- NOTE | 2020-02-23 10:51 | ONC.SCHED ---
Called patient regarding the status of her [employer] authorization which Deborah requested she obtain on 01/13/2020. Patient informed me that her had just and she was trying to get herself together. I told her I would go ahead and call [facility] to initiate the new [employer] authorization and call her for scheduling when we receive it. Yvette at [facility] will call me when she obtains authorization.
--- NOTE | 2020-02-23 12:58 | ONC.SCHED ---
Per Yvette @ [facility], patient's [employer] termed in November. Called patient and she is going to call [employer] because she thinks she has coverage. Spoke with Yvette again and she is going to continue looking into this and get back to me.
--- NOTE | 2020-02-23 14:00 | ONC.SCHED ---
Yvette left message stating that she spoke with [employer] and they confirmed that the patient's coverage termed on 11/25/2019. I will wait for the patient to call us back as per our earlier discussion by phone.
== END ==
PROVIDERS: Family Provider Physician Assistant; PCP Physician Assistant; Visit Provider Internal Medicine Hematology & Oncology
DX: D50.8 Other iron deficiency anemias (principal); D75.1 Secondary polycythemia; K90.9 Intestinal malabsorption, unspecified; E66.9 Obesity, unspecified; Z98.84 Bariatric surgery status
CPT/HCPCS: 36415; 80053; 81219; 82728; 83540; 83550; 83615; 85025; 99214; 99233